=== PATIENT | male | born 1970 | race American Indian/Alaskan Native ===

== ENCOUNTER 2017-02-02 07:55 | Observation (INO) | payer OTHER ==
--- NOTE | 2017-02-02 08:40 | C.PDOC ---
History Of Present Illness 46-YEAR-OLD MALE, PRESENTS TO THE EMERGENCY DEPARTMENT WITH COMPLAINTS OF INTERMIT L FACIAL NUMB X 3 DAYS. PS ABLE TO DRINK/EAT WO DIFF. DENIES ARM/LEG WEAKNESS. COMPLIANT W BP MEDS. DENIES OTHER ASSOC SX EXAM NAD NEURO SEE NIH GAIT WNL REMAINDER NEG Time Seen by Provider: 02/02/17 08:27 Chief Complaint (Nursing): Weakness/Neurological Deficit History Per: Patient History/Exam Limitations: no limitations Past Medical History Reviewed: Historical Data, Nursing Documentation, Vital Signs Vital Signs: Last Vital Signs Temp 98.4 F 02/02/17 08:01 Pulse 79 02/02/17 10:56 Resp 16 02/02/17 10:56 BP 145/86 02/02/17 10:56 Pulse Ox 99 02/02/17 10:56 - Medical History PMH: HTN, Hypercholesterolemia Family History: States: No Known Family Hx - Social History Hx Alcohol Use: No Hx Substance Use: No - Immunization History Hx Tetanus Toxoid Vaccination: No Hx Influenza Vaccination: No Hx Pneumococcal Vaccination: No Review Of Systems Except As Marked, All Systems Reviewed And Found Negative. Constitutional: Negative for: Fever Cardiovascular: Negative for: Chest Pain Respiratory: Negative for: Shortness of Breath Gastrointestinal: Negative for: Vomiting Neurological: Positive for: Numbness. Negative for: Headache, Dizziness Physical Exam - Physical Exam Appears: Non-toxic, No Acute Distress Skin: Warm, Dry, No Rash Head: Atraumatic, Normacephalic Eye(s): bilateral: Normal Inspection Nose: Normal Oral Mucosa: Moist Lips: Normal Appearing Neck: Normal ROM Chest: Symmetrical Cardiovascular: Rhythm Regular, No Murmur Extremity: Normal ROM Neurological/Psych: Other (SEE NIH) Gait: Steady (WNL) ED Course And Treatment - Laboratory Results Result Diagrams: 02/02/17 08:59 02/02/17 08:59 ECG: Interpreted By Me, Viewed By Me ECG Rhythm: Sinus Rhythm ECG Interpretation: No Acute Changes Rate From EC O2 Sat by Pulse Oximetry: 100 Pulse Ox Interpretation: Normal - Radiology CXR: Interpreted by Me CXR Interpretation: Yes: No Acute Disease NIHSS Stroke Scale - Date/Time Evaluation Performed Date Performed: 02/02/17 Time Performed: 08:41 When Was NIHSS Performed: Baseline - How Severe is the Stroke Level of Consciousness: 0=Alert LOC to Questions: 0=Both comments correct LOC to commands: 0=Obeys both correctly Best Gaze: 0=Normal Visual: 0=No visual loss Facial: 0=Normal Motor Arm - Left: 0=No drift Motor Arm - Right: 0=No drift Motor Leg - Left: 0=No drift Motor Leg - Right: 0=No drift Limb Ataxia: 0=Absent Sensory: 1=Mild to moderate loss Best Language: 0=No aphasia Dysarthia: 0=Normal articulation Extinction & Inattention (Neglect): 0=Normal, no object Score: 1 NIHSS Stroke Scale 2 - Date/Time Evaluation Performed Date Performed: 02/02/17 Time Performed: 10:12 When Was NIHSS Performed: Re-evaluation - How Severe is the Stroke Level of Consciousness: 0=Alert LOC to Questions: 0=Both comments correct LOC to commands: 0=Obeys both correctly Best Gaze: 0=Normal Visual: 0=No visual loss Facial: 0=Normal Motor Arm - Left: 0=No drift Motor Arm - Right: 0=No drift Motor Leg - Left: 0=No drift Motor Leg - Right: 0=No drift Limb Ataxia: 0=Absent Sensory: 1=Mild to moderate loss Best Language: 0=No aphasia Dysarthia: 0=Normal articulation Extinction & Inattention (Neglect): 0=Normal, no object Score: 1 Progress - Re-Evaluation Re-evaluation Note: 02/02/17 10:12 EXAM UNCH FROM PRIOR. VSS APPEARS COMFORTABLE. 02/02/17 10:14 D/W DR GUANAKITO [facility] [employer] WILL ADMIT - Data Reviewed Data Reviewed: Lab, Diagnostic imaging, EKG, Old records rTPA Inclusion/Exclusion - Refusal of Treatment Patient Refused Treatment: No - Inclusion Criteria for Altepase Patient is 18 years or Older: Yes The Clinical Diagnosis of Ischemic Stroke That is Causing a Potentially Disabling Neurological Deficit: Yes Time of Onset is Well Established to be Less Than 270 Minute Before Treatment Would Begin: No Risk/Benefit Discussed With Patient/Family Member Present: No - Exclusion Criteria for Altepase Uncontrolled Hypertension at Time of Treatment (Systolic BP above 185 or Diastolic BP above 110 mmHg): No Active Internal Bleeding: No Known Bleeding Diathesis Including but Not Limited to: Platelets Below 100,000/ mm,PTT Above 40 sec After Heparin Use, Current Use of Oral Anitcoagulant With INR Greater Than 1.7 or PT Greater Than 15 secs: No Evidence of an Intracranial Hemorrhage: No Evidence of Major Acute Infarct With Signs Greater Than 1/3 MCA Territory: No Suspicion of Subarachnoid Hemorrhage on Pretreatment Evaluation Even if CT Head Negative For Hemorrhage: No - Warning to TPA With Conditions Following Conditions Weighed Against Anticipated Benefit: Yes Condition: Stroke Serevity Too Mild Disposition Counseled Patient/Family Regarding: Studies Performed, Diagnosis - Disposition Disposition: HOSPITALIZED Disposition Time: 10:15 Condition: STABLE - POA Present On Arrival: None - Clinical Impression Clinical Impression: Facial paresthesia, TIA (transient ischemic attack) - Scribe Statement The provider has reviewed the documentation as recorded by the Scribe (Ketan George) All medical record entries made by the Scribe were at my direction and personally dictated by me. I have reviewed the chart and agree that the record accurately reflects my personal performance of the history, physical exam, medical decision making, and the department course for this patient. I have also personally directed, reviewed, and agree with the discharge instructions and disposition. Decision To Admit - Pt Status Changed To: Hospital Disposition Of: Observation - . Bed Request Type: Telemetry Admitting Physician: Wild Joel Patient Diagnosis: Facial paresthesia, TIA (transient ischemic attack)
[2017-02-02 09:16] LABS: BASO % 0.4 % (0.0-2.0); EOS # 0.1 K/uL (0.0-0.7); EOS % 2.4 % (0.0-4.0); LYMPH # 1.7 K/uL (1.0-4.3); LYMPH % 36.2 % (20.0-40.0); MEAN CELL VOLUME 79.6 fL (80.0-94.0); MEAN CORPUSCULAR HEMOGLOBIN 25.9 pg (27.0-31.0); MEAN CORPUSCULAR HGB CONC 32.5 g/dL (33.0-37.0); MEAN PLATELET VOLUME 8.1 fL (7.2-11.7); MONO # 0.4 K/uL (0.0-0.8); NRBC % 0.1 % (0.0-2.0); RED CELL DISTRIBUTION WIDTH 15.1 % (11.5-14.5); WHITE BLOOD COUNT 4.6 K/uL (4.8-10.8)
[2017-02-02 09:22] LABS: BLOOD UREA NITROGEN 11 mg/dL (9-20); CALCIUM 8.8 mg/dl (8.6-10.4); CARBON DIOXIDE 26 mmol/L (22-30); CHLORIDE 99 mmol/L (98-107); GFR AFRICAN-AMERICAN > 60; GLUCOSE,RANDOM 95 mg/dL (75-110); POTASSIUM 3.9 mmol/L (3.6-5.2); SODIUM 133 mmol/L (132-148)
--- NOTE | 2017-02-02 10:00 | CT ---
PROCEDURE: CT HEAD WITHOUT CONTRAST. HISTORY: Left facial paresthesia COMPARISON: None available. TECHNIQUE: Axial computed tomography images were obtained through the head/brain without intravenous contrast. Radiation dose: Total exam DLP = 856.29 mGy-cm. This CT exam was performed using one or more of the following dose reduction techniques: Automated exposure control, adjustment of the mA and/or kV according to patient size, and/or use of iterative reconstruction technique. FINDINGS: HEMORRHAGE: No intracranial hemorrhage. BRAIN: Mcgill-white matter differentiation is preserved. There is no mass, mass effect or abnormal extra-axial fluid collection. VENTRICLES: The ventricles are normal in size, shape and configuration. CALVARIUM: There is no calvarial fracture or extracranial soft tissue swelling. PARANASAL SINUSES: There is mild scattered mucosal thickening in the ethmoid air cells. The remaining included paranasal sinuses are clear. MASTOID AIR CELLS: Predominantly clear. OTHER FINDINGS: None. IMPRESSION: No acute intracranial abnormality. If there is a persistent focal neurologic deficit and an ongoing clinical concern for acute infarction, an MRI of the brain without intravenous contrast would be a more sensitive modality for evaluation of hyperacute/acute ischemic infarction.
--- NOTE | 2017-02-02 12:59 | CP.PCM.CON ---
History of Present Illness - History of Present Illness History of Present Illness: consult DICTATED REC LEFT FACIAL NUMBNESS AND HEAVY - ?? RT CORTICAL DYSFUNCTION ECOTRIN/STATIN/.ARB MRI/EEG/CAROTID/ECHO. Past Patient History - Infectious Disease Hx of Infectious Diseases: None - Past Medical History & Family History Past Medical History?: Yes - Past Social History Smoking Status: Never Smoked - CARDIAC Hx Hypercholesterolemia: Yes Hx Hypertension: Yes - PSYCHIATRIC Hx Substance Use: No - SURGICAL HISTORY Hx Surgeries: Yes Other/Comment: ventral hernia repair. - ANESTHESIA Hx Anesthesia: Yes Hx Anesthesia Reactions: No Hx Malignant Hyperthermia: No Meds Allergies/Adverse Reactions: Allergies Allergy/AdvReac Type Severity Reaction Status Date / Time No Known Allergies Allergy Verified 02/02/17 08:05 - Medications Medications: Current Medications Amlodipine Besylate (Norvasc) 5 mg PO DAILY [facility] Enoxaparin Sodium (Lovenox) 40 mg SC DAILY [facility]ENG Rosuvastatin Calcium (Crestor) 10 mg PO HS [facility]ENG Results - Vital Signs Recent Vital Signs: Last Vital Signs Temp 98.6 F 02/02/17 11:59 Pulse 96 H 02/02/17 11:59 Resp 18 02/02/17 11:59 BP 134/83 02/02/17 11:59 Pulse Ox 98 02/02/17 11:59 - Labs Result Diagrams: 02/02/17 08:59 02/02/17 08:59 Labs: Laboratory Results - last 24 hr 02/02/17 02/02/17 08:59 08:59 WBC 4.6 L RBC 5.53 Hgb 14.3 Hct 44.0 MCV 79.6 L MCH 25.9 L MCHC 32.5 L RDW 15.1 H Plt Count 236 MPV 8.1 Neut % (Auto) 52.0 Lymph % (Auto) 36.2 Andrews % (Auto) 9.0 Eos % (Auto) 2.4 Baso % (Auto) 0.4 Neut # 2.4 Lymph # 1.7 Andrews # 0.4 Eos # 0.1 Baso # 0.0 Sodium 133 Potassium 3.9 Chloride 99 Carbon Dioxide 26 Anion Gap 13 BUN 11 Creatinine 1.1 Est GFR ( Amer) > 60 Est GFR (Non-Af Amer) > 60 Random Glucose 95 Calcium 8.8 Troponin I < 0.0120
[2017-02-02 13:13] VITALS: RESP 20
--- NOTE | 2017-02-02 14:09 | CON ---
NEUROLOGIC INITIAL CONSULTATION DATE OF EVALUATION: 02/02/2017 REASON FOR CONSULTATION: Left-sided facial weakness. HISTORY OF PRESENT ILLNESS: The patient came to the [facility] with a history of recurrent left facial heaviness and numbness. This has been happening at least 3 times per day. First episode, it happened while he was in a [employer] store, abrupt onset of facial heaviness on his left side, just he massaged to move his neck right and left side, with exercise, the symptoms got better. This episode happened 3 times yesterday. Again this morning at 6 o'clock, he had this episode and decided to come to the hospital for further evaluation. This episode is not associating with any facial weakness or any other weakness of his arm and legs, not affecting his speech, not affecting his visual or bulbar dysfunction. No history of recent travel. No history of trauma. No history of involuntary movements. PAST MEDICAL HISTORY: Significant for hypertension and dyslipidemia. PERSONAL HISTORY: Denies any smoking and alcohol use. REVIEW OF SYSTEMS: A 12-point system being reviewed. From neuro, no facial heaviness. MEDICATION: Norvasc. PHYSICAL EXAMINATION: VITAL SIGNS: Blood pressure 124/83, mean arterial pressure of 100, respiratory rate 16, temperature 98.6, pulse rate 100. NECK: Supple. No carotid bruits. HEART: Sounds regular. CHEST: Fair air entry. EXTREMITIES: No edema in legs. NEUROLOGIC: Mental status, he is awake, alert, and oriented to person, place, and time. Speech is clear. Naming, repetition, fluency, comprehension all within normal. Cranial nerves, visual field intact. Pupils reactive to light. Extraocular movement normal. No nystagmus. No facial sensory deficit. Mild left facial flattening of the nasolabial fold. Hearing is normal. Tongue is midline. Good gag. Motor examination on outstretched hand with eyes closed, no drift noted. Power is symmetric on either side. Deep tendon reflexes, biceps, brachialis, triceps are 1+. Plantar upgoing on his left side. Sensory, no cortical sensory loss. Coordination, mfzqvc-[id number] test is intact. Gait is normal. WORKUP: CT of the head reviewed by me, no acute stroke process. EKG normal sinus rhythm. WBC 4.6, hemoglobin 14.3, hematocrit 44, platelet 236, sodium 133, potassium 3.9, chloride 99, bicarbonate 26, BUN 11, creatinine 1.1, GFR more than 60, troponin 0.012. CONCLUSION: Mr. Bridger Stubbs has been presenting with mild left hemiparesis manifesting with dysfunction of the right subcortical region manifesting with flattening of the left nasolabial fold and Babinski sign. Considering his overweight, hypertension and poorly controlled cholesterol could be the cause for his problem; however, other possible causes including tumor and space-occupying lesion should be ruled out. RECOMMENDATIONS: 1. MRI of the brain to rule out structural cause for this problem. 2. A carotid Doppler to rule out stenosis. 3. Echocardiogram to rule out any cardioembolic phenomenon. 4. EEG to rule out any paroxysmal activities. 5. The patient should be on aspirin, statin, and angiotensin receptor blockers. 6. The patient should control the blood pressure to keep the mean arterial pressure around 90 to 100. 7. If the patient is stable for the next 24-hour period, following this workup, the patient can be discharged and should have a followup visit as an outpatient. James Zurita MD
[2017-02-02 14:52] LABS: FREE T4 1.12 ng/dL (0.78-2.19)
[2017-02-02 15:43] LABS: FOLATE 12.3 ng/mL
[2017-02-02 15:52] LABS: THYROID STIMULATING HORMONE 1.06 mIU/L (0.46-4.68)
[2017-02-02 16:25] LABS: HOMOCYSTEINE 14.2 umol/L (6.6-14.8)
--- NOTE | 2017-02-03 00:03 | CP.PCM.HP ---
History of Present Illness - History of Present Illness History of Present Illness: 46 y/o bm with htn, and he claims to be compliant, with 2 days of l sided facila numbness and weakness, with no symptoms in arms and leg, no chest pain, no sob Present on Admission - Present on Admission Any Indicators Present on Admission: No History of DVT/PE: No History of Uncontrolled Diabetes: No Urinary Catheter: No Decubitus Ulcer Present: No Review of Systems - Constitutional Constitutional: Snoring - Cardiovascular Cardiovascular: Rapid Heart Rate - Respiratory Respiratory: Cough - Musculoskeletal Musculoskeletal: absent: Abnormal Gait, Arthralgias, Atrophy, Back Pain - Integumentary Integumentary: absent: Alopecia, Bleeding Lesions, New Lesions - Neurological Neurological: Tingling. absent: Headaches, Lack of Coordination - Endocrine Endocrine: Fatigue Past Patient History - Infectious Disease Hx of Infectious Diseases: None - Past Medical History & Family History Past Medical History?: Yes - Past Social History Smoking Status: Never Smoked - CARDIAC Hx Hypercholesterolemia: Yes Hx Hypertension: Yes - MUSCULOSKELETAL/RHEUMATOLOGICAL Hx Falls: No - PSYCHIATRIC Hx Substance Use: No - SURGICAL HISTORY Hx Surgeries: Yes Other/Comment: ventral hernia repair. - ANESTHESIA Hx Anesthesia: Yes Hx Anesthesia Reactions: No Hx Malignant Hyperthermia: No Meds Allergies/Adverse Reactions: Allergies Allergy/AdvReac Type Severity Reaction Status Date / Time No Known Allergies Allergy Verified 02/02/17 08:05 Physical Exam - Constitutional Appears: Non-toxic, No Acute Distress - Head Exam Head Exam: ATRAUMATIC, NORMAL INSPECTION, NORMOCEPHALIC - Eye Exam Eye Exam: EOMI, Normal appearance, PERRL Pupil Exam: NORMAL ACCOMODATION - ENT Exam ENT Exam: Mucous Membranes Moist, Normal Exam, Normal Oropharynx - Neck Exam Neck exam: Positive for: Normal Inspection - Respiratory Exam Respiratory Exam: Clear to Auscultation Bilateral, NORMAL BREATHING PATTERN - Cardiovascular Exam Cardiovascular Exam: REGULAR RHYTHM, +S1, +S2 - GI/Abdominal Exam GI & Abdominal Exam: Normal Bowel Sounds - Rectal Exam Rectal Exam: NORMAL INSPECTION - Exam Exam: NORMAL INSPECTION - Extremities Exam Extremities exam: Positive for: normal inspection - Back Exam Back exam: NORMAL INSPECTION - Neurological Exam Neurological exam: Alert, CN II-XII Intact, Normal Gait, Oriented x3, Reflexes Normal - Skin Skin Exam: Dry, Intact Results - Vital Signs Recent Vital Signs: Last Vital Signs Temp 98.3 F 02/02/17 15:16 Pulse 81 02/02/17 15:56 Resp 20 02/02/17 15:16 BP 131/86 02/02/17 15:16 Pulse Ox 97 02/02/17 15:16 - Labs Result Diagrams: 02/02/17 08:59 02/02/17 08:59 Labs: Laboratory Results - last 24 hr 02/02/17 02/02/17 02/02/17 08:59 08:59 14:02 WBC 4.6 L RBC 5.53 Hgb 14.3 Hct 44.0 MCV 79.6 L MCH 25.9 L MCHC 32.5 L RDW 15.1 H Plt Count 236 MPV 8.1 Neut % (Auto) 52.0 Lymph % (Auto) 36.2 Hodgeman % (Auto) 9.0 Eos % (Auto) 2.4 Baso % (Auto) 0.4 Neut # 2.4 Lymph # 1.7 Hodgeman # 0.4 Eos # 0.1 Baso # 0.0 ESR 10 Sodium 133 Potassium 3.9 Chloride 99 Carbon Dioxide 26 Anion Gap 13 BUN 11 Creatinine 1.1 Est GFR ( Amer) > 60 Est GFR (Non-Af Amer) > 60 Random Glucose 95 Hemoglobin A1c Calcium 8.8 Troponin I < 0.0120 C-React Prot High Sens Triglycerides Cholesterol LDL Cholesterol Direct HDL Cholesterol Vitamin B12 Folate Homocysteine Free T4 TSH 3rd Generation Prolactin RPR 02/02/17 02/02/17 02/02/17 14:02 14:02 14:02 WBC RBC Hgb Hct MCV MCH MCHC RDW Plt Count MPV Neut % (Auto) Lymph % (Auto) Hodgeman % (Auto) Eos % (Auto) Baso % (Auto) Neut # Lymph # Hodgeman # Eos # Baso # ESR Sodium Potassium Chloride Carbon Dioxide Anion Gap BUN Creatinine Est GFR ( Amer) Est GFR (Non-Af Amer) Random Glucose Hemoglobin A1c Calcium Troponin I C-React Prot High Sens 0.43 L Triglycerides 123 Cholesterol 256 H LDL Cholesterol Direct 176 H HDL Cholesterol 43 Vitamin B12 267 Folate 12.3 Homocysteine 14.2 Free T4 1.12 TSH 3rd Generation 1.06 Prolactin 11.2 RPR Nonreactive 02/02/17 14:30 WBC RBC Hgb Hct MCV MCH MCHC RDW Plt Count MPV Neut % (Auto) Lymph % (Auto) Hodgeman % (Auto) Eos % (Auto) Baso % (Auto) Neut # Lymph # Hodgeman # Eos # Baso # ESR Sodium Potassium Chloride Carbon Dioxide Anion Gap BUN Creatinine Est GFR ( Amer) Est GFR (Non-Af Amer) Random Glucose Hemoglobin A1c 5.7 Calcium Troponin I C-React Prot High Sens Triglycerides Cholesterol LDL Cholesterol Direct HDL Cholesterol Vitamin B12 Folate Homocysteine Free T4 TSH 3rd Generation Prolactin RPR Assessment & Plan (1) Hypertension Status: Chronic Priority: High (2) Facial paresthesia Status: Acute Priority: High
[2017-02-03 02:12] VITALS: O2SAT 100
[2017-02-03 08:34] VITALS: BP 130/85; PULSE 86; TEMP 98.2
--- NOTE | 2017-02-03 09:39 | PN ---
DATE: 02/03/2017 TIME OF EVALUATION: 07:15 a.m. NEUROLOGICAL PROBLEM: Possible right cortical dysfunction manifesting with left facial numbness. PHYSICAL EXAMINATION: NEUROLOGIC: Mild asymmetry of the face again noted. Reflexes are intact. Plantars are downgoing. ASSESSMENT AND PLAN: The patient is scheduled to have MRI of the brain, EEG and further workup for the stroke. The patient can continue antiplatelets as recommended with Crestor and angiotension receptor blockers. If MRI is negative, the patient can be discharged and should have followup visit as outpatient. In the meantime, let him continue the recommendation. James Zurita MD
[2017-02-03] MEDS ORDERED: Enoxaparin 40 mg Syringe SC SCH (10:00)
--- NOTE | 2017-02-03 11:17 | VASCLAB ---
PROCEDURE: HISTORY: assess stenosis COMPARISON: None available. TECHNIQUE: Grayscale and duplex Doppler evaluation of the cervical carotid and vertebral arteries were performed. The common carotid, carotid bifurcations and cervical Internal Carotid Artery (ICA) and proximal External Carotid Artery (ECA) were evaluated. The vertebral arteries were evaluated for gross patency and flow direction. Report prepared by JUANA Milner FINDINGS: RIGHT CAROTID ARTERIES: 1. Common Carotid Artery: No significant focal plaque formation of the right common carotid artery. Maximum Peak Systolic velocity: 108 cm/sec: End-diastolic velocity 19 cm/sec. 2. Carotid Bifurcation: No significant focal plaque formation. Maximum Peak Systolic velocity: 63 cm/sec: End-diastolic velocity 14 cm/sec. 3. Internal Carotid Artery: No significant plaque formation Plaque description: 3.1. Proximal Segment: Peak systolic velocity 46 cm/sec: End-diastolic velocity 19 cm/sec - % stenosis 0-15% 3.2. Middle Segment: Peak systolic velocity 50 cm/sec: End-diastolic velocity 19 cm/sec - % stenosis 0-15% 3.3. Distal Segment: Peak systolic velocity 65 cm/sec: End-diastolic velocity 22 cm/sec - % stenosis 0-15% 4. External Carotid Artery: No significant focal plaque formation. Peak systolic velocity 56 cm/sec 5. ICA/CCA Ratio: 0.6 LEFT CAROTID ARTERIES: 1. Common Carotid Artery: No significant focal plaque formation of the left common carotid artery. Maximum Peak Systolic velocity: 92 cm/sec: End-diastolic velocity 19 cm/sec. 2. Carotid Bifurcation: No significant focal plaque formation. Maximum Peak Systolic velocity: 76 cm/sec: End-diastolic velocity 14 cm/sec. 3. Internal Carotid Artery: No significant plaque formation Plaque description: 3.1. Proximal Segment: Peak systolic velocity 39 cm/sec: End-diastolic velocity 13 cm/sec - % stenosis 0-15% 3.2. Middle Segment: Peak systolic velocity 84 cm/sec: End-diastolic velocity 30 cm/sec - % stenosis 0-15% 3.3. Distal Segment: Peak systolic velocity 57 cm/sec: End-diastolic velocity 17 cm/sec - % stenosis 0-15% 4. External Carotid Artery: No significant focal plaque formation. Peak systolic velocity 79 cm/sec 5. ICA/CCA Ratio: 0.9 VERTEBRAL ARTERIES: 1. Right Vertebral Artery: The right vertebral artery flow direction is antegrade. 2. Left Vertebral Artery: The left vertebral artery flow direction is antegrade. OTHER FINDINGS: 1. Right Brachial Blood pressure: 160 mmHg. 2. Left Brachial Blood pressure: 140 mmHg. IMPRESSION: RIGHT: Duplex scan does not suggest hemodynamically significant stenosis of the right extracranial carotid arteries. LEFT: Duplex scan does not suggest hemodynamically significant stenosis of the left extracranial carotid arteries.
--- NOTE | 2017-02-03 13:05 | MRI ---
PROCEDURE: MRI BRAIN WITHOUT CONTRAST HISTORY: RIGH SUB CORTICAL STROKE COMPARISON: Head CT 02/02/2017. TECHNIQUE: Multiplanar, multisequence MR images of the brain were obtained without intravenous contrast enhancement. FINDINGS: HEMORRHAGE: None DWI: No evidence of an acute or early subacute infarction. BRAIN PARENCHYMA: There are 2 tiny foci identified in the bilateral parietal deep white matter diminished in signal on FLAIR imaging and increased signal on T2 weighted imaging. There diminished in signal on T1 and likely reflect either dilated perivascular spaces for potential chronic lacunes the remaining white matter is within normal limits throughout, including the corpus callosum. Follow-up contrast MRI is advised for additional characterization, nevertheless. Corticomedullary differentiation is normal throughout the brain and there is no mass-effect. Sulci and cisterns appear normal throughout. No escobedo matter signal abnormality is identified and there is no parenchymal edema appreciated throughout. VENTRICLES: Unremarkable. No hydrocephalus. CRANIUM: Unremarkable. ORBITS: Grossly unremarkable. PARANASAL SINUSES/MASTOIDS: Clear VASCULAR SYSTEM: Skull base flow voids intact. OTHER FINDINGS: A 0.7 cm lesion, bright on all sequences, is seen in the midline posterior nasopharyngeal soft tissues appearing well-circumscribed and representing a Tornwaldt cyst. IMPRESSION: 1. Sub cm T2 hyperintensity, FLAIR and T1 hypointensity is appreciated with one each at the right and left parietal lobes deep white matter potentially representing dilated perivascular spaces. The appearance is nonspecific and other etiologies are possible with remaining white matter normal in appearance throughout include, including the corpus callosum. Follow-up MRI with contrast is advised given lack of prior MRI for correlation. 2. Incidental Tornwaldt cyst posterior nasopharynx.
--- NOTE | 2017-02-03 15:26 | CP.PCM.PN ---
Subjective - Date & Time of Evaluation Date of Evaluation: 02/03/17 Time of Evaluation: 15:26 - Subjective Subjective: PT CLEARED FOR D/C HOME TODAY PER DR. JUDD AND DR. CALABRESE. ECHO DONE BUT RESULT IS PENDING. OK TO D/C PT WITH ECHO RESULTS PENDING PER DR. CALABRESE. RX FOR STATIN, ARB, AND ASA SENT TO PT'S PHARMACY. I HAD LENGTHY DISCUSSION WITH THE PT ABOUT NEW RX, D/C INFORMATION, AND FOLLOW UP. HE WILL F/U WITH BOTH DR. JUDD AND DR. CALABRESE. I ALSO PROVIDED HIM WITH ENT INFORMATION SO THAT HE CAN BE FURTHER EVALUATED FOR CYST NOTED TO NASOPHARYNX ON CT. NO FURTHER ORDERS. Objective - Vital Signs/Intake and Output Vital Signs (last 24 hours): Temp Pulse Resp BP Pulse Ox 98.2 F 86 20 130/85 100 02/03/17 07:45 02/03/17 07:45 02/03/17 07:45 02/03/17 07:45 02/03/17 07:45 Intake and Output: 02/03/17 02/03/17 06:59 18:59 Intake Total 0 Balance 0 - Medications Medications: Current Medications Amlodipine Besylate (Norvasc) 5 mg PO DAILY [facility] Last Admin: 02/03/17 10:43 Dose: 5 mg Aspirin (Ecotrin) 81 mg PO DAILY [facility] Last Admin: 02/03/17 10:43 Dose: 81 mg Enoxaparin Sodium (Lovenox) 40 mg SC DAILY [facility]ENG Last Admin: 02/03/17 10:43 Dose: 40 mg Lorazepam (Ativan) 1 mg IVP ONCE PRN PRN Reason: Sedation Last Admin: 02/03/17 10:39 Dose: 1 mg Losartan Potassium (Cozaar) 25 mg PO DAILY [facility] Last Admin: 02/03/17 10:43 Dose: 25 mg Rosuvastatin Calcium (Crestor) 5 mg PO HS [facility] Last Admin: 02/02/17 21:18 Dose: 5 mg - Labs Labs: 02/02/17 08:59 02/02/17 08:59
--- NOTE | 2017-02-03 22:58 | CP.PCM.DIS ---
Provider - Provider Date of Admission: 02/02/17 10:15 Attending physician: Wild Joel MD Time Spent in preparation of Discharge (in minutes): 56 Diagnosis - Discharge Diagnosis (1) Hypertension Status: Chronic Priority: High (2) Facial paresthesia Status: Acute Priority: High Hospital Course - Lab Results Lab Results: Most Recent Lab Values WBC 4.6 K/uL (4.8-10.8) L 02/02/17 08:59 RBC 5.53 Mil/uL (4.40-5.90) 02/02/17 08:59 Hgb 14.3 g/dL (12.0-18.0) 02/02/17 08:59 Hct 44.0 % (35.0-51.0) 02/02/17 08:59 MCV 79.6 fL (80.0-94.0) L 02/02/17 08:59 MCH 25.9 pg (27.0-31.0) L 02/02/17 08:59 MCHC 32.5 g/dL (33.0-37.0) L 02/02/17 08:59 RDW 15.1 % (11.5-14.5) H 02/02/17 08:59 Plt Count 236 K/uL (130-400) 02/02/17 08:59 MPV 8.1 fL (7.2-11.7) 02/02/17 08:59 Neut % (Auto) 52.0 % (50.0-75.0) 02/02/17 08:59 Lymph % (Auto) 36.2 % (20.0-40.0) 02/02/17 08:59 Brown % (Auto) 9.0 % (0.0-10.0) 02/02/17 08:59 Eos % (Auto) 2.4 % (0.0-4.0) 02/02/17 08:59 Baso % (Auto) 0.4 % (0.0-2.0) 02/02/17 08:59 Neut # 2.4 K/uL (1.8-7.0) 02/02/17 08:59 Lymph # 1.7 K/uL (1.0-4.3) 02/02/17 08:59 Brown # 0.4 K/uL (0.0-0.8) 02/02/17 08:59 Eos # 0.1 K/uL (0.0-0.7) 02/02/17 08:59 Baso # 0.0 K/uL (0.0-0.2) 02/02/17 08:59 ESR 10 mm/hr (0-15) 02/02/17 14:02 Sodium 133 mmol/L (132-148) 02/02/17 08:59 Potassium 3.9 mmol/L (3.6-5.2) 02/02/17 08:59 Chloride 99 mmol/L (98-107) 02/02/17 08:59 Carbon Dioxide 26 mmol/L (22-30) 02/02/17 08:59 Anion Gap 13 (10-20) 02/02/17 08:59 BUN 11 mg/dL (9-20) 02/02/17 08:59 Creatinine 1.1 mg/dL (0.8-1.5) 02/02/17 08:59 Est GFR ( Amer) > 60 02/02/17 08:59 Est GFR (Non-Af Amer) > 60 02/02/17 08:59 Random Glucose 95 mg/dL (75-110) 02/02/17 08:59 Hemoglobin A1c 5.7 % (4.2-6.5) 02/02/17 14:30 Calcium 8.8 mg/dl (8.6-10.4) 02/02/17 08:59 Troponin I < 0.0120 ng/mL (0.00-0.120) 02/02/17 08:59 C-React Prot High Sens 0.43 mg/L (1.00-3.00) L 02/02/17 14:02 Triglycerides 123 mg/dL (0-149) 02/02/17 14:02 Cholesterol 256 mg/dL (0-199) H 02/02/17 14:02 LDL Cholesterol Direct 176 mg/dL (0-129) H 02/02/17 14:02 HDL Cholesterol 43 mg/dL (30-70) 02/02/17 14:02 Vitamin B12 267 pg/mL (239-931) 02/02/17 14:02 Folate 12.3 ng/mL 02/02/17 14:02 Homocysteine 14.2 umol/L (6.6-14.8) 02/02/17 14:02 Free T4 1.12 ng/dL (0.78-2.19) 02/02/17 14:02 TSH 3rd Generation 1.06 mIU/L (0.46-4.68) 02/02/17 14:02 Prolactin 11.2 ng/mL (3.7-17.9) 02/02/17 14:02 RPR Nonreactive (NONREACTIVE) 02/02/17 14:02 - Hospital Course Hospital Course: Pt was discharged today, seen by neurology and cleared was admitted for numbness of left side of face with unknwon etiology Discharge Exam - Head Exam Head Exam: ATRAUMATIC, NORMAL INSPECTION, NORMOCEPHALIC - Eye Exam Eye Exam: EOMI, Normal appearance, PERRL Pupil Exam: NORMAL ACCOMODATION, PERRL - ENT Exam ENT Exam: Mucous Membranes Moist - Respiratory Exam Respiratory Exam: Clear to PA & Lateral, NORMAL BREATHING PATTERN - Cardiovascular Exam Cardiovascular Exam: REGULAR RHYTHM, +S1, +S2 - GI/Abdominal Exam GI & Abdominal Exam: Normal Bowel Sounds - Neurological Exam Neurological exam: Alert, CN II-XII Intact, Normal Gait, Oriented x3, Reflexes Normal - Psychiatric Exam Psychiatric exam: Normal Affect, Normal Mood Discharge Plan - Discharge Medications Prescriptions: Losartan [Cozaar] 25 mg PO DAILY #30 tab Rosuvastatin Calcium [Crestor] 5 mg PO HS #30 tab Aspirin [Ecotrin] 81 mg PO DAILY #30 tabec - Follow Up Plan Condition: STABLE Disposition: HOME/ ROUTINE Instructions: Aspirin (By mouth), Losartan (By mouth), Rosuvastatin (By mouth) , Transient Ischemic Attack (DC), Heart Healthy Diet (DC) Additional Instructions: FOLLOW UP WITH DR. JOEL IN THE OFFICE WITHIN 5-7 DAYS---CALL FOR APPT TIME. FOLLOW UP WITH DR. JUDD (NEUROLOGY) IN THE OFFICE WITHIN 7-10 DAYS---CALL FOR APPT TIME. CONTINUE ALL MEDICATIONS EXACTLY PRESCRIBED. FOR FURTHER CONCERNS OR QUESTIONS ,CONTACT DR. JOEL OR DR. JUDD. Referrals: Mir Linares MD [Staff Provider] - James Judd MD [Staff Provider] - Wild Joel MD [Staff Provider] -
--- NOTE | 2017-02-04 21:43 | CARD ---
APPROVED REPORT EKG Measurement Heart [id number] [place] 130P-5 [id number] <Conclusion> Normal sinus rhythm Nonspecific T wave abnormality Abnormal ECG
--- NOTE | 2017-02-04 22:33 | CARD ---
APPROVED REPORT EXAM: Two-dimensional and M-mode echocardiogram with Doppler and color Doppler. Other Information Quality : GoodRhythm : INDICATION CVA/TIA RISK FACTORS Hypertension M-Mode DIMENSIONS RVDd1.48 (2.1-3.2cm)Left Atrium (MM)3.84 (2.5-4.0cm) IVSd0.92 (0.7-1.1cm)Aortic Root3.21 (2.2-3.7cm) LVDd6.12 (4.0-5.6cm)Aortic Cusp Exc.2.10 (1.5-2.0cm) PWd0.96 (0.7-1.1cm)FS (%) 34 % LVDs4.06 (2.0-3.8cm)LVEF (%)62 (>50%) Aortic Valve AoV Peak Mbjmlzli158.9cm/Se Peak GR.7mmHg Mitral Valve MV E Cwozqqsd91.8cm/sMV A Ezctdxyv315.9cm/sE/A ratio0.7 TDI E/Lateral E'0.0E/Medial E'0.0 Tricuspid Valve TR Peak Jlciabbu584hw/sTR Peak Gr.17voEfDHUS73apSv <Conclusion> Suboptimal study Left ventricle: thickness: normal; size: normal; overall ejection fraction: 55%: diastolic filling pressures: elevated Mitral valve: annulus: normal: leaflets: normal: excursion: normal; no significant trans-mitral gradient:mild incompetence: left atrium: normal Aortic valve: leaflets: normal: excursion: normal; no significant trans-aortic gradient: No significant incompetence: aortic root: normal Right sided Structures: Pulmonary valve: normal; no significant incompetence; Tricuspid valve: normal;no significant incompetence: Intra-cardiac hemodynamics: pulmonary systolic pressures: normal; central venous pressures: normal No pericardial effusion
== END 2017-02-03 16:10 | disposition home or self-care (01) ==
LOC: C.ER 07:55 → C.9E 10:15 → C.6T 11:12
PROVIDERS: ADMIT Specialist; ATTEND Internal Medicine
DX: I10 Essential (primary) hypertension (principal); E78.5 Hyperlipidemia, unspecified; E66.3 Overweight; R20.2 Paresthesia of skin
CPT/HCPCS: 70450; 70551; 71020; 80048; 80061; 82607; 82746; 83036; 83090; 84146; 84439; 84443; 84484; 85025; 85651; 86140; 86592; 93306; 93880; 95812; 97116; 97161; 97165; 97530; 99285; G0378; G8978; G8979; G8980; G8987; G8988; G8989; J1650; J2060

== ENCOUNTER 2018-07-01 23:42 | Inpatient (IN) | payer OTHER ==
[2018-07-01] MEDS ORDERED: Sodium Chloride 0.9% 1,000 ML IV ONE (23:57)
--- NOTE | 2018-07-02 00:02 | C.PDOC ---
History Of Present Illness 48 year old male presents to the ED c/o abdominal pain for the past week. Patient also reports having constipation, subjective fever at home he has been treating with Tylenol. Patient denies other medical complaints. Time Seen by Provider: 07/01/18 23:48 Chief Complaint (Nursing): Abdominal Pain History Per: Patient History/Exam Limitations: no limitations Onset/Duration Of Symptoms: Days Current Symptoms Are (Timing): Still Present Location Of Pain/Discomfort: Diffuse Quality Of Discomfort: "Pain" Associated Symptoms: Fever, Constipation. denies: Nausea, Vomiting, Diarrhea Recent travel outside of the [place]: No Additional History Per: Patient Past Medical History Reviewed: Historical Data, Nursing Documentation, Vital Signs Vital Signs: Last Vital Signs Temp 100.1 F H 07/01/18 23:51 Pulse 104 H 07/01/18 23:51 Resp 20 07/01/18 23:51 BP 142/85 07/01/18 23:51 Pulse Ox 97 07/01/18 23:51 Primary Care Provider: Wild Joel - Medical History PMH: HTN, Hypercholesterolemia Surgical History: No Surg Hx Family History: States: Unknown Family Hx - Social History Hx Alcohol Use: No Hx Substance Use: No - Immunization History Hx Tetanus Toxoid Vaccination: No Hx Influenza Vaccination: No Hx Pneumococcal Vaccination: No Review Of Systems Constitutional: Positive for: Fever. Negative for: Chills Cardiovascular: Negative for: Chest Pain Respiratory: Negative for: Shortness of Breath Gastrointestinal: Positive for: Abdominal Pain. Negative for: Nausea, Vomiting Genitourinary: Negative for: Dysuria Musculoskeletal: Negative for: Back Pain Skin: Negative for: Rash Neurological: Negative for: Weakness, Numbness Physical Exam - Physical Exam Appears: Non-toxic, No Acute Distress Skin: Normal Color, Warm, Dry Head: Atraumatic, Normacephalic Eye(s): bilateral: Normal Inspection Neck: Normal ROM, Supple Chest: Symmetrical Cardiovascular: Rhythm Regular Respiratory: Normal Breath Sounds, No Rales, No Rhonchi, No Wheezing Gastrointestinal/Abdominal: Soft, Tenderness (non focal mostly lower abdomen), Distention (moderate), No Guarding, No Rebound Back: No CVA Tenderness Extremity: Normal ROM, No Tenderness, No Swelling Neurological/Psych: Oriented x3, Normal Speech, Normal Cognition Gait: Steady ED Course And Treatment - Laboratory Results Result Diagrams: 07/02/18 00:35 05/24/19 00:35 O2 Sat by Pulse Oximetry: 97 (ON RA) Pulse Ox Interpretation: Normal - CT Scan/US CT abd/pelvis Other Rad Studies (CT/US): Read By Radiologist, Radiology Report Reviewed CT/US Interpretation: CT SCAN OF THE ABDOMEN AND PELVIS WITHOUT ORAL OR IV CONTRAST. CLINICAL INDICATION: Abdominal distention. TECHNIQUE: Axial and reformatted sagittal and coronal images of the abdomen pelvis obtained without IV contrast administration. COMPARISON: None. FINDINGS: Colonic diver ticulosis. Perforated acute sigmoid diverticulitis. Surrounding minimal pockets of free perisigmoid gas. Perisigmoid free fluid. No other foci of pneumoperitoneum are noted. No loculated drainable abscess formation. The visualized lung bases are unremarkable. Normal unenhanced liver. Normal gallbladder and extrahepatic biliary system. Normal unenhanced spleen. Normal pancreas. . Normal bilateral adrenal glands. Normal size of the right kidney. There is no right renal mass. There are no right renal calculi. There is no right hydronephrosis. Normal visualized right ureter. Normal size of the left kidney. There is no left renal mass. There are no left renal calculi. There i s no left hydronephrosis. Normal visualized left ureter. Normal visualized stomach. Normal small intestine. The appendix is visualized and appears normal. Normal abdominal aorta. Normal inferior vena cava. Normal retroperitoneum. . Normal urinary bladder. There is no pelvic mass lesion or lymphadenopathy. . Normal abdominal wall. Normal osseous structures. IMPRESSION: Colonic diverticulosis. Perforated acute sigmoid diverticulitis. Surrounding minimal pockets of free perisigmoid gas. Surgical consultation is recommended. Perisigmoid free fluid. No other foci of pneumoperitoneum are noted. No loculated drainable abscess formation. . Electronically signed on July 02, 2018 3:48:48 AM EDT by: Xena White M.D., Certified by ABR, MSK, Neuroradiology Medical Decision Making Medical Decision Making: ro obstuction colitis uti Plan: * Labs * IV fluids * Tylenol 975 mg PO * UA lab sneg. ct shows microperf, divertiultis, no gross free air. abd sfot mild voluntary gaurding, no reboound. see in ner by surgery accepted dr joel. r equests dr adkins consult. Disposition - Disposition Disposition: HOSPITALIZED Disposition Time: 04:55 Condition: GOOD - Clinical Impression Clinical Impression: Perforated diverticulum, Diverticulitis - Scribe Statement The provider has reviewed the documentation as recorded by the Scribe Jarrod Sprague All medical record entries made by the Scribe were at my direction and personally dictated by me. I have reviewed the chart and agree that the record accurately reflects my personal performance of the history, physical exam, medical decision making, and the department course for this patient. I have also personally directed, reviewed, and agree with the discharge instructions and disposition. Decision To Admit - Pt Status Changed To: Hospital Disposition Of: Inpatient - Admit Certification Admit to Inpatient:: After my assessment, the patient will require hospitalization for at least two midnights. This is because of the severity of symptoms shown, intensity of services needed, and/or the medical risk in this patient being treated as an outpatient. - InPatient: Physician Admission Certification:: needs surgery eval and iv anbitiocsi - . Bed Request Type: Regular Admitting Physician: Wild Joel Patient Diagnosis: Perforated diverticulum, Diverticulitis
[2018-07-02 00:42] LABS: BASO % 0.4 % (0.0-2.0); EOS % 0.4 % (0.0-4.0); HEMOGLOBIN 11.9 g/dL (12.0-18.0); LYMPH # 1.4 K/uL (1.0-4.3); LYMPH % 16.7 % (20.0-40.0); MEAN CELL VOLUME 77.9 fL (80.0-94.0); MEAN CORPUSCULAR HEMOGLOBIN 25.4 pg (27.0-31.0); MEAN CORPUSCULAR HGB CONC 32.6 g/dL (33.0-37.0); MEAN PLATELET VOLUME 7.7 fL (7.2-11.7); MONO # 0.8 K/uL (0.0-0.8); MONO % 8.9 % (0.0-10.0); NEUT # 6.3 K/uL (1.8-7.0); NEUT % 73.6 % (50.0-75.0); NRBC % 0.1 % (0.0-2.0); RBC 4.69 Mil/uL (4.40-5.90); RED CELL DISTRIBUTION WIDTH 14.9 % (11.5-14.5); WHITE BLOOD COUNT 8.6 K/uL (4.8-10.8)
[2018-07-02 00:46] LABS: SQUAMOUS EPITHIAL < 1 /hpf (0-5); URINE BILIRUBIN NEGATIVE (NEGATIVE); URINE BLOOD NEGATIVE (NEGATIVE); URINE CLARITY Clear (Clear); URINE COLOR Yellow (YELLOW); URINE GLUCOSE (UA) NORMAL (Normal); URINE LEUKOCYTE ESTERASE NEG Leu/uL (Negative); URINE PROTEIN 1+ mg/dL (NEGATIVE); URINE UROBILINOGEN NORMAL mg/dL (0.2-1.0)
[2018-07-02 00:52] LABS: INR 1.4; PARTIAL THROMBOPLASTIN TIME 34.5 SECONDS (21-34); PROTHROMBIN TIME 14.8 SECONDS (9.7-12.2)
[2018-07-02 00:54] LABS: BLOOD UREA NITROGEN 15 mg/dL (9-20); CALCIUM 9.1 mg/dl (8.6-10.4); GFR NON-AFRICAN AMERICAN 59; LIPASE 58 U/L (23-300)
[2018-07-02 01:03] LABS: ALBUMIN 3.9 g/dL (3.5-5.0); ALT/SGPT 29 U/L (21-72); AST/SGOT 47 U/L (17-59)
[2018-07-02] MEDS ORDERED: Iodixanol 320 MG/ML 100 ML BOTTLE IV ONE (02:32)
[2018-07-02] MEDS ORDERED: Piperacillin/Tazobact 3.375 gm 100 ML IVPB STA (03:50)
[2018-07-02] MEDS ORDERED: HYDROmorphone 0.5 mg/0.5 ml ISec IVP PRN (04:24)
[2018-07-02] MEDS ORDERED: Piperacillin/Tazobact 3.375 gm 100 ML IVPB ONE (04:26)
--- NOTE | 2018-07-02 04:29 | CP.PCM.CON ---
History of Present Illness - History of Present Illness History of Present Illness: General surgery consult note for Dr. Aleksander Barrett, PGY-2 Pt seen/examined at bedside 48M w/PMH sig for HTN, HLD consulted for LLQ abdominal pain x 1 week. Pain is moderate- severe, radiates to back, constant, sharp. Alleviated by Tylenol, no aggravating factors identified. 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 Denies chills, diarrhea, dysuria, hematuria, CP, SOB, sore throat, cough, [place], other complaints. Denies ever having a colonoscopy. In ED, afebrile, no leukocytosis. CT A/P with findings of Colonic diverticulosis. Perforated acute sigmoid diverticulitis. Surrounding minimal pockets of free perisigmoid gas. Surgical consultation is recommended. Per isigmoid free fluid. No other foci of pneumoperitoneum are noted. No loculated drainable abscess formation. PMH: HTN, HLD PSH: umbilical hernia repair All: NKDA SH: Denies ETOH, tobacco or illicit drug use FH: Non contributory PMD: Dr. Joel Review of Systems - Review of Systems All systems: reviewed and no additional remarkable complaints except - Constitutional Constitutional: Fever. absent: Chills, Headache - EENT Nose/Mouth/Throat: absent: Sore Throat - Cardiovascular Cardiovascular: absent: Chest Pain - Respiratory Respiratory: absent: Cough - Gastrointestinal Gastrointestinal: Abdominal Pain, Constipation. absent: Diarrhea, Hematemesis, Hematochezia, Loose Stools, Melena, Nausea, Vomiting - Genitourinary Genitourinary: absent: Dysuria, Hematuria - Musculoskeletal Musculoskeletal: Back Pain - Integumentary Integumentary: absent: Rash - Neurological Neurological: Weakness - Psychiatric Psychiatric: Change in Appetite Past Patient History - Infectious Disease Hx of Infectious Diseases: None - Past Medical History & Family History Past Medical History?: Yes - Past Social History Smoking Status: Never Smoked - CARDIAC Hx Hypercholesterolemia: Yes Hx Hypertension: Yes - MUSCULOSKELETAL/RHEUMATOLOGICAL Hx Falls: No - PSYCHIATRIC Hx Substance Use: No - SURGICAL HISTORY Hx Surgeries: Yes Other/Comment: ventral hernia repair. - ANESTHESIA Hx Anesthesia: Yes Hx Anesthesia Reactions: No Hx Malignant Hyperthermia: No Meds Allergies/Adverse Reactions: Allergies Allergy/AdvReac Type Severity Reaction Status Date / Time No Known Allergies Allergy Verified 07/01/18 23:55 - Medications Medications: Current Medications Hydromorphone HCl (Dilaudid) 0.5 mg IVP Q3H PRN PRN Reason: Pain, severe (8-10) Lactated Ringer's (Lactated Ringer's) 1,000 mls @ 150 mls/hr IV .Q6H40M MENG Piperacillin Sod/Tazobactam Sod (Zosyn 3.375 Gm Iv Premix) 3.375 gm in 50 mls @ 100 mls/hr IVPB Q6H MENG; Protocol Ketorolac Tromethamine (Toradol) 30 mg IVP Q6H PRN PRN Reason: Pain, moderate (4-7) Ondansetron HCl (Zofran Inj) 4 mg IVP Q4H PRN PRN Reason: Nausea/Vomiting Physical Exam - Constitutional Appears: Non-toxic, No Acute Distress - Head Exam Head Exam: ATRAUMATIC, NORMAL INSPECTION, NORMOCEPHALIC - Eye Exam Eye Exam: EOMI, Normal appearance - ENT Exam ENT Exam: Mucous Membranes Moist, Normal Exam - Neck Exam Neck exam: Positive for: Full Rom, Normal Inspection - Respiratory Exam Respiratory Exam: Clear to Auscultation Bilateral, NORMAL BREATHING PATTERN. absent: Rales, Rhonchi, Wheezes, Respiratory Distress - Cardiovascular Exam Cardiovascular Exam: REGULAR RHYTHM, +S1, +S2 - GI/Abdominal Exam GI & Abdominal Exam: Guarding (LLQ, suprapubic), Normal Bowel Sounds, Soft, Tenderness (LLQ, suprapubic). absent: Distended (obese), Firm, Hernia, Rebound, Rigid Additional comments: well healed supraumbilical midline incisional scar - Rectal Exam Rectal Exam: NORMAL INSPECTION. absent: Hemorrhoids, Fecal Impaction - Extremities Exam Extremities exam: Positive for: normal inspection - Back Exam Back exam: NORMAL INSPECTION - Neurological Exam Neurological exam: Alert, CN II-XII Intact, Oriented x3 - Psychiatric Exam Psychiatric exam: Normal Affect, Normal Mood - Skin Skin Exam: Dry, Intact, Normal Color, Warm Results - Vital Signs Recent Vital Signs: Last Vital Signs Temp 98.2 F 07/02/18 02:16 Pulse 85 07/02/18 02:16 Resp 20 07/02/18 02:16 BP 128/82 07/02/18 02:16 Pulse Ox 97 05/24/19 02:16 - Labs Result Diagrams: 07/02/18 00:35 07/02/18 00:35 Labs: Laboratory Results - last 24 hr 07/02/18 07/02/18 07/02/18 00:35 00:35 00:35 WBC 8.6 D RBC 4.69 Hgb 11.9 L D Hct 36.6 MCV 77.9 L MCH 25.4 L MCHC 32.6 L RDW 14.9 H Plt Count 351 D MPV 7.7 Neut % (Auto) 73.6 Lymph % (Auto) 16.7 L [place] % (Auto) 8.9 Eos % (Auto) 0.4 Baso % (Auto) 0.4 Neut # (Auto) 6.3 Lymph # (Auto) 1.4 [place] # (Auto) 0.8 Eos # (Auto) 0.0 Baso # (Auto) 0.0 PT 14.8 H INR 1.4 APTT 34.5 H Sodium 137 Potassium 5.0 Chloride 102 Carbon Dioxide 27 Anion Gap 13 BUN 15 Creatinine 1.3 Est GFR ( Amer) > 60 Est GFR (Non-Af Amer) 59 Random Glucose 90 Calcium 9.1 Total Bilirubin 0.7 AST 47 ALT 29 Alkaline Phosphatase 58 Total Protein 7.9 Albumin 3.9 Globulin 4.0 H Albumin/Globulin Ratio 1.0 Lipase 58 Urine Color Urine Clarity Urine pH Ur Specific [place] Urine Protein Urine Glucose (UA) Urine Ketones Urine Blood Urine Nitrate Urine Bilirubin Urine Urobilinogen Ur Leukocyte Esterase Urine WBC (Auto) Urine RBC (Auto) Ur Squamous Epith Cells 07/02/18 00:35 WBC RBC Hgb Hct MCV MCH MCHC RDW Plt Count MPV Neut % (Auto) Lymph % (Auto) [place] % (Auto) Eos % (Auto) Baso % (Auto) Neut # (Auto) Lymph # (Auto) [place] # (Auto) Eos # (Auto) Baso # (Auto) PT INR APTT Sodium Potassium Chloride Carbon Dioxide Anion Gap BUN Creatinine Est GFR ( Amer) Est GFR (Non-Af Amer) Random Glucose Calcium Total Bilirubin AST ALT Alkaline Phosphatase Total Protein Albumin Globulin Albumin/Globulin Ratio Lipase Urine Color Yellow Urine Clarity Clear Urine pH 6.0 Ur Specific [place] 1.021 Urine Protein 1+ H Urine Glucose (UA) Normal Urine Ketones 1+ H Urine Blood Negative Urine Nitrate Negative Urine Bilirubin Negative Urine Urobilinogen Normal Ur Leukocyte Esterase Neg Urine WBC (Auto) < 1 Urine RBC (Auto) 1 Ur Squamous Epith Cells < 1 Assessment & Plan - Assessment and Plan (Free Text) Assessment: 48M w/diverticulitis Plan: NPO IVF Abx pain control Anti-emetic PRN FU FOBT Recommend GI consult for colonoscopy Will STEPHEN Barrett, PGY-2 - Date & Time Date: 07/02/18 Time: 04:30
[2018-07-02] MEDS: Lactated Ringer's 1,000 ML IV SCH ×3 (05:03→14:45)
[2018-07-02] MEDS ORDERED: Sodium Chloride 0.9% 1,000 ML IV SCH (07:45)
[2018-07-02] MEDS ORDERED: Piperacillin/Tazobact 3.375 GM in Sodium Chloride 100 ML IVPB SCH (09:00)
--- NOTE | 2018-07-02 09:03 | RAD ---
Date of service: 07/02/2018 HISTORY: Abdominal pain COMPARISON: 02/02/2017 FINDINGS: LUNGS: No active pulmonary disease. PLEURA: No significant pleural effusion identified, no pneumothorax apparent. CARDIOVASCULAR: No aortic atherosclerotic calcification present. Normal cardiac size. OSSEOUS STRUCTURES: No significant abnormalities. VISUALIZED UPPER ABDOMEN: Normal. OTHER FINDINGS: None. IMPRESSION: No active disease.
[2018-07-02] MEDS: Enoxaparin 40 mg Syringe SC SCH (09:32)
[2018-07-02] MEDS: metroNIDAZOLE IV 500 mg/100 ml 500 MG/100 ML BAG IVPB SCH ×2 (09:33→16:46)
--- NOTE | 2018-07-02 10:13 | CT ---
CT abdomen and pelvis HISTORY: Abdominal distention. Comparison: None. Technique: Multiple contiguous axial images were performed through the abdomen and pelvis with the use of intravenous contrast. Subsequently, sagittal and coronal reformatted images were obtained. This CT exam was performed using one or more of the following dose reduction techniques: Automated exposure control, adjustment of the mA and/or kV according to patient size, and/or use of iterative reconstruction technique. Findings: Scattered atelectasis at the lung bases. No pleural or pericardial effusion. Liver and gallbladder are preserved. Spleen is preserved. Nodular thickening of the right adrenal gland measuring up to 1.2 centimeters. This would be better delineated within multiphasic contrast enhanced CT or MR if clinically indicated. Mild nodularity of the left adrenal gland. Pancreas is preserved. Small hiatal hernia. Right kidney: No calculi or hydronephrosis. Left Kidney: No calculi or hydronephrosis. Underdistended urinary bladder. Heterogeneous prostate. Colonic diverticulosis. Prominent focal colonic thickening at the level of the mid sigmoid colon with adjacent free peritoneal air and fluid. The fluid appears somewhat confluent measuring up to 4.8 x 2.9 centimeters. This is suggestive for a ruptured acute sigmoid diverticulitis with associated perforation and free air in the adjacent abdomen. Suggestion of a developing phlegmon and or possible abscess collection. Clinical correlation. Appendix is within normal limits. Degenerative changes in the spine. Impression: 1. Colonic diverticulosis. Prominent focal colonic thickening at the level of the mid sigmoid colon with adjacent free peritoneal air and fluid. The fluid appears somewhat confluent measuring up to 4.8 x 2.9 centimeters. This is suggestive for a ruptured acute sigmoid diverticulitis with associated perforation and free air in the adjacent abdomen. Suggestion of a developing phlegmon and or possible abscess collection. Clinical correlation. 2. Nodular thickening of the right adrenal gland measuring up to 1.2 centimeters. This would be better delineated within multiphasic contrast enhanced CT or MR if clinically indicated. Additional findings as above. A preliminary report was generated at 3:48 a.m. on 07/02/[address] Xena White from [email or web address].
[2018-07-02] MEDS: Piperacill/Tazo 3.375gm in Dex 3.375 GM/50 ML BAG IVPB SCH ×3 (11:46→16:44)
--- NOTE | 2018-07-02 22:47 | CP.PCM.HP ---
Present on Admission - Present on Admission Any Indicators Present on Admission: No Past Patient History - Infectious Disease Hx of Infectious Diseases: None - Past Medical History & Family History Past Medical History?: Yes - Past Social History Smoking Status: Never Smoked - CARDIAC Hx Hypercholesterolemia: Yes Hx Hypertension: Yes - MUSCULOSKELETAL/RHEUMATOLOGICAL Hx Falls: No - PSYCHIATRIC Hx Substance Use: No - SURGICAL HISTORY Hx Surgeries: Yes Other/Comment: ventral hernia repair. - ANESTHESIA Hx Anesthesia: Yes Hx Anesthesia Reactions: No Hx Malignant Hyperthermia: No Meds Allergies/Adverse Reactions: Allergies Allergy/AdvReac Type Severity Reaction Status Date / Time No Known Allergies Allergy Verified 07/01/18 23:55 Results - Vital Signs Recent Vital Signs: Last Vital Signs Temp 98.4 F 07/02/18 15:26 Pulse 90 07/02/18 15:38 Resp 18 07/02/18 15:26 BP 138/84 07/02/18 15:26 Pulse Ox 97 07/02/18 15:26 - Labs Result Diagrams: 07/02/18 00:35 07/02/18 00:35 Labs: Laboratory Results - last 24 hr 07/02/18 07/02/18 07/02/18 00:35 00:35 00:35 WBC 8.6 D RBC 4.69 Hgb 11.9 L D Hct 36.6 MCV 77.9 L MCH 25.4 L MCHC 32.6 L RDW 14.9 H Plt Count 351 D MPV 7.7 Neut % (Auto) 73.6 Lymph % (Auto) 16.7 L [place] % (Auto) 8.9 Eos % (Auto) 0.4 Baso % (Auto) 0.4 Neut # (Auto) 6.3 Lymph # (Auto) 1.4 [place] # (Auto) 0.8 Eos # (Auto) 0.0 Baso # (Auto) 0.0 PT 14.8 H INR 1.4 APTT 34.5 H Sodium 137 Potassium 5.0 Chloride 102 Carbon Dioxide 27 Anion Gap 13 BUN 15 Creatinine 1.3 Est GFR ( Amer) > 60 Est GFR (Non-Af Amer) 59 Random Glucose 90 Calcium 9.1 Total Bilirubin 0.7 AST 47 ALT 29 Alkaline Phosphatase 58 Total Protein 7.9 Albumin 3.9 Globulin 4.0 H Albumin/Globulin Ratio 1.0 Lipase 58 Urine Color Urine Clarity Urine pH Ur Specific [place] Urine Protein Urine Glucose (UA) Urine Ketones Urine Blood Urine Nitrate Urine Bilirubin Urine Urobilinogen Ur Leukocyte Esterase Urine WBC (Auto) Urine RBC (Auto) Ur Squamous Epith Cells Stool Occult Blood 07/02/18 07/02/18 00:35 04:32 WBC RBC Hgb Hct MCV MCH MCHC RDW Plt Count MPV Neut % (Auto) Lymph % (Auto) [place] % (Auto) Eos % (Auto) Baso % (Auto) Neut # (Auto) Lymph # (Auto) [place] # (Auto) Eos # (Auto) Baso # (Auto) PT INR APTT Sodium Potassium Chloride Carbon Dioxide Anion Gap BUN Creatinine Est GFR ( Amer) Est GFR (Non-Af Amer) Random Glucose Calcium Total Bilirubin AST ALT Alkaline Phosphatase Total Protein Albumin Globulin Albumin/Globulin Ratio Lipase Urine Color Yellow Urine Clarity Clear Urine pH 6.0 Ur Specific [place] 1.021 Urine Protein 1+ H Urine Glucose (UA) Normal Urine Ketones 1+ H Urine Blood Negative Urine Nitrate Negative Urine Bilirubin Negative Urine Urobilinogen Normal Ur Leukocyte Esterase Neg Urine WBC (Auto) < 1 Urine RBC (Auto) 1 Ur Squamous Epith Cells < 1 Stool Occult Blood Negative
[2018-07-03] MEDS: Lactated Ringer's 1,000 ML IV SCH (00:01)
[2018-07-03 00:55] VITALS: RESP 20
--- NOTE | 2018-07-03 03:47 | HP ---
CHIEF COMPLAINT: Lower abdominal pain. HISTORY OF PRESENT ILLNESS: This is a 48-year-old male, well known to me, with history of hypertension, hyperlipidemia with lower abdominal pain, suprapubic and left lower quadrant pain for one week. In the past, he has history of diverticulitis. The patient is with moderate testicular pain which is constant, sharp, and alleviated by Tylenol. No aggravating factors. At times, bowel habits are sluggish and he gets constipated. Other than that, the patient has decreased appetite, lower abdominal pain, nausea. No vomiting. The patient denies any diarrhea. He denies any bleeding per rectum. He denies any fever, chills or rigors. He denies any polyuria, polydipsia, or polyphagia. He denies any history of hematuria or pyuria. He denies any sneezing, itchy eyes, or itchy nose. He denies any joint pain or hip pain. He denied any skin rash. He denied any history of cough, sore throat or runny nose. There is no history of joint pain or hip pain. PAST MEDICAL HISTORY: Hypertension, hyperlipidemia, umbilical hernia repair. SOCIAL HISTORY: Nonsmoker. Non-ETOH user. CURRENT MEDICATIONS: The patient is on omeprazole and losartan. FAMILY HISTORY: Noncontributory. PHYSICAL EXAMINATION: GENERAL: A middle-aged male in moderate distress. VITAL SIGNS: Blood pressure 138/84, pulse 98, respiratory rate 18, temperature 98.4. SKIN: No rashes. No bruises. No purpura. No petechiae. No ecchymosis. HEENT: Atraumatic and normocephalic. Negative pallor. Negative jaundice. Extraocular movements are intact. NECK: Supple. No JVD. No lymph node. No thyromegaly. CHEST WALL: Bilaterally symmetrical expansion. LUNGS: Bilaterally clear. No rales. No rhonchi. CARDIOVASCULAR SYSTEM: S1 and S2, regular. No heave. No thrill. RECTAL: Negative. ABDOMEN: There is hypogastric tenderness. No guarding. No rebound. No rigidity. EXTREMITIES: No clubbing, cyanosis or edema. CENTRAL NERVOUS SYSTEM: Normal. ASSESSMENT: 1. Acute diverticulitis with perforated colon. 2. Dehydration. PLAN: Admit. Detailed orders are written. Seen and examined. Wild Joel MD
[2018-07-03] MEDS: Piperacill/Tazo 3.375gm in Dex 3.375 GM/50 ML BAG IVPB SCH ×4 (04:30→21:35)
--- NOTE | 2018-07-03 07:45 | CP.PCM.PN ---
Subjective - Date & Time of Evaluation Date of Evaluation: 07/03/18 Time of Evaluation: 07:42 - Subjective Subjective: Surgery Progress Note for Dr. Olsen 48M seen and evaluated at bedside this morning. No acute events overnight. No complaints this morning. Patient still had LLQ pain, improving. Does not have much appetite. One episode of diarrhea yesterday. Denies f/c, n/v, SOB, CP, or urinary symptoms. Objective - Vital Signs/Intake and Output Vital Signs (last 24 hours): Temp Pulse Resp BP Pulse Ox 98.3 F 89 20 138/82 95 07/02/18 23:40 07/03/18 06:27 07/02/18 23:40 07/02/18 23:40 07/02/18 23:40 Intake and Output: 07/03/18 07/03/18 06:59 18:59 Intake Total 1200 Balance 1200 - Medications Medications: Current Medications Enoxaparin Sodium (Lovenox) 40 mg SC DAILY [facility] Last Admin: 07/02/18 09:32 Dose: 40 mg Hydromorphone HCl (Dilaudid) 0.5 mg IVP Q3H PRN PRN Reason: Pain, severe (8-10) Lactated Ringer's (Lactated Ringer's) 1,000 mls @ 150 mls/hr IV .Q6H40M [facility] Last Admin: 07/03/18 00:01 Dose: 150 mls/hr Piperacillin Sod/Tazobactam Sod (Zosyn 3.375 Gm Iv Premix) 3.375 gm in 50 mls @ 100 mls/hr IVPB Q6H [facility]; Protocol Last Admin: 07/03/18 04:30 Dose: 100 mls/hr Metronidazole (Flagyl) 500 mg in 100 mls @ 100 mls/hr IVPB Q8H [facility]; Protocol Last Admin: 07/03/18 00:00 Dose: 100 mls/hr Ketorolac Tromethamine (Toradol) 30 mg IVP Q6H PRN PRN Reason: Pain, moderate (4-7) Last Admin: 07/02/18 21:13 Dose: 30 mg Losartan Potassium (Cozaar) 50 mg PO DAILY [facility] Last Admin: 07/02/18 09:32 Dose: 50 mg Morphine Sulfate (Morphine) 2 mg IVP Q4 PRN PRN Reason: Pain, moderate (4-7) Ondansetron HCl (Zofran Inj) 4 mg IVP Q4H PRN PRN Reason: Nausea/Vomiting Pantoprazole Sodium (Protonix Inj) 40 mg IVP DAILY [facility] Last Admin: 07/02/18 09:32 Dose: 40 mg - Labs Labs: 07/02/18 00:35 07/02/18 00:35 PT 14.8 SECONDS (9.7-12.2) H 07/02/18 00:35 INR 1.4 07/02/18 00:35 APTT 34.5 SECONDS (21-34) H 07/02/18 00:35 - Constitutional Appears: Well, Non-toxic, No Acute Distress - Head Exam Head Exam: ATRAUMATIC, NORMAL INSPECTION, NORMOCEPHALIC - Eye Exam Eye Exam: EOMI Pupil Exam: PERRL - ENT Exam ENT Exam: Mucous Membranes Moist - Respiratory Exam Respiratory Exam: NORMAL BREATHING PATTERN. absent: Wheezes, Respiratory Distress - GI/Abdominal Exam GI & Abdominal Exam: Distended, Soft, Tenderness, Normal Bowel Sounds. absent: Guarding, Rebound - Extremities Exam Extremities Exam: Normal Inspection - Neurological Exam Neurological Exam: Alert, Awake, Oriented x3 - Psychiatric Exam Psychiatric exam: Normal Affect, Normal Mood - Skin Skin Exam: Dry, Intact, Normal Color, Warm Assessment and Plan - Assessment and Plan (Free Text) Assessment: 48M w/ diverticulitis Plan: Continue NPO today Advance diet once patient's pain resolved IV Abx IVF Antiemetics and analgesics PRN Stool occult negative Further recs per Dr. Raúl Corcoran PGY1
[2018-07-03] MEDS: metroNIDAZOLE IV 500 mg/100 ml 500 MG/100 ML BAG IVPB SCH ×3 (09:13→21:36)
[2018-07-03] MEDS: Enoxaparin 40 mg Syringe SC SCH (09:13)
[2018-07-03] MEDS ORDERED: Phytonadione 10 mg/ml Inj (Adult) SC STA (11:25)
--- NOTE | 2018-07-03 23:10 | PN ---
DATE: 07/03/2018 SUBJECTIVE: The patient has still lower abdominal pain, generalized weakness, and nausea. No vomiting. He is n.p.o. He is being seen by GI surgery. No fever. No chills. On antibiotics. PHYSICAL EXAMINATION: VITAL SIGNS: Blood pressure 130/80, pulse 77, respiratory rate 16, and temperature 99. LUNGS: Bilaterally clear. CARDIOVASCULAR SYSTEM: S1 and S2, regular. ABDOMEN: Left lower quadrant and hypogastric tenderness. ASSESSMENT: Acute diverticulosis with perforation on conservative medical management. PLAN: Continue antibiotics, n.p.o. and IV fluids. Wild Joel MD
[2018-07-04] MEDS: metroNIDAZOLE IV 500 mg/100 ml 500 MG/100 ML BAG IVPB SCH ×3 (00:20→17:25)
[2018-07-04] MEDS: Lactated Ringer's 1,000 ML IV SCH ×2 (00:21→15:46)
[2018-07-04] MEDS: Piperacill/Tazo 3.375gm in Dex 3.375 GM/50 ML BAG IVPB SCH ×3 (05:02→21:34)
--- NOTE | 2018-07-04 07:40 | CP.PCM.PN ---
Subjective - Date & Time of Evaluation Date of Evaluation: 07/04/18 Time of Evaluation: 07:55 - Subjective Subjective: Surgery Progress Note for Dr. Olsen Patient seen and evaluated at bedside this morning. No acute events overnight. No complaints this morning. Patient reports pain is improving. He does not have much of an appetite. Admits to BM and passing flatus. Denies f/c, n/v, SOB, CP, or urinary symptoms. Objective - Vital Signs/Intake and Output Vital Signs (last 24 hours): Temp Pulse Resp BP Pulse Ox 98.7 F 88 20 147/85 96 07/03/18 23:35 07/04/18 00:37 07/03/18 23:35 07/03/18 23:35 07/03/18 23:35 - Medications Medications: Current Medications Enoxaparin Sodium (Lovenox) 40 mg SC DAILY [facility] Last Admin: 07/03/18 09:13 Dose: 40 mg Hydromorphone HCl (Dilaudid) 0.5 mg IVP Q3H PRN PRN Reason: Pain, severe (8-10) Lactated Ringer's (Lactated Ringer's) 1,000 mls @ 150 mls/hr IV .Q6H40M [facility] Last Admin: 07/04/18 00:21 Dose: 150 mls/hr Piperacillin Sod/Tazobactam Sod (Zosyn 3.375 Gm Iv Premix) 3.375 gm in 50 mls @ 100 mls/hr IVPB Q6H [facility]; Protocol Last Admin: 07/04/18 05:02 Dose: 100 mls/hr Metronidazole (Flagyl) 500 mg in 100 mls @ 100 mls/hr IVPB Q8H [facility]; Protocol Last Admin: 07/04/18 00:20 Dose: 100 mls/hr Ketorolac Tromethamine (Toradol) 30 mg IVP Q6H PRN PRN Reason: Pain, moderate (4-7) Last Admin: 07/02/18 21:13 Dose: 30 mg Losartan Potassium (Cozaar) 50 mg PO DAILY [facility] Last Admin: 07/03/18 09:13 Dose: 50 mg Morphine Sulfate (Morphine) 2 mg IVP Q4 PRN PRN Reason: Pain, moderate (4-7) Ondansetron HCl (Zofran Inj) 4 mg IVP Q4H PRN PRN Reason: Nausea/Vomiting Pantoprazole Sodium (Protonix Inj) 40 mg IVP DAILY [facility] Last Admin: 07/03/18 09:13 Dose: 40 mg - Labs Labs: 07/02/18 00:35 07/02/18 00:35 PT 14.8 SECONDS (9.7-12.2) H 07/02/18 00:35 INR 1.4 07/02/18 00:35 APTT 34.5 SECONDS (21-34) H 07/02/18 00:35 - Additional Findings Additional findings: - Constitutional Appears: Well, Non-toxic, No Acute Distress - Head Exam Head Exam: ATRAUMATIC, NORMAL INSPECTION, NORMOCEPHALIC - Eye Exam Eye Exam: EOMI Pupil Exam: PERRL - ENT Exam ENT Exam: Mucous Membranes Moist - Respiratory Exam Respiratory Exam: NORMAL BREATHING PATTERN. absent: Wheezes, Respiratory Distress - GI/Abdominal Exam GI & Abdominal Exam: Distended, Soft, Tenderness (mild, improved), Normal Bowel Sounds. absent: Guarding, Rebound - Extremities Exam Extremities Exam: Normal Inspection - Neurological Exam Neurological Exam: Alert, Awake, Oriented x3 - Psychiatric Exam Psychiatric exam: Normal Affect, Normal Mood - Skin Skin Exam: Dry, Intact, Normal Color, Warm Medardo Imbrescia PGY2 Assessment and Plan - Assessment and Plan (Free Text) Assessment: 48M w/ diverticulitis Plan: CLD, ADAT f/u am labs IV Abx IVF Antiemetics and analgesics PRN Further recs as per Dr. Olsen
[2018-07-04 08:36] LABS: BASO % 0.4 % (0.0-2.0); EOS # 0.1 K/uL (0.0-0.7); EOS % 1.1 % (0.0-4.0); HEMOGLOBIN 11.5 g/dL (12.0-18.0); LYMPH # 1.3 K/uL (1.0-4.3); LYMPH % 17.4 % (20.0-40.0); MEAN CELL VOLUME 77.6 fL (80.0-94.0); MEAN CORPUSCULAR HEMOGLOBIN 25.4 pg (27.0-31.0); MEAN CORPUSCULAR HGB CONC 32.8 g/dL (33.0-37.0); MEAN PLATELET VOLUME 7.7 fL (7.2-11.7); MONO # 0.7 K/uL (0.0-0.8); MONO % 10.2 % (0.0-10.0); NEUT # 5.2 K/uL (1.8-7.0); NEUT % 70.9 % (50.0-75.0); NRBC % 0.1 % (0.0-2.0); RBC 4.52 Mil/uL (4.40-5.90); RED CELL DISTRIBUTION WIDTH 14.8 % (11.5-14.5); WHITE BLOOD COUNT 7.3 K/uL (4.8-10.8)
[2018-07-04 08:54] LABS: ALBUMIN 3.5 g/dL (3.5-5.0); BLOOD UREA NITROGEN 15 mg/dL (9-20); GFR NON-AFRICAN AMERICAN 54
[2018-07-04 08:55] LABS: ALT/SGPT 24 U/L (21-72); AST/SGOT 26 U/L (17-59)
[2018-07-04] MEDS: Enoxaparin 40 mg Syringe SC SCH (10:48)
--- NOTE | 2018-07-04 14:57 | PN ---
DATE: 07/04/2018 LOCATION: 672, bed A. SUBJECTIVE: This is a 48-year-old male, seen in rounds with less abdominal pain. No reported active bleeding with bowel movement x1 and had been passing gas recently. The patient still has mild nausea and dyspepsia and loss of appetite, but no reported active GI bleeding. The entire chart is reviewed and the most recent lab results showed hemoglobin of 11.5 with low indices, but normal white cells and platelet count with normal SMA-18. Cancer marker, CEA level reported to be 1.5, normal. PHYSICAL EXAMINATION: GENERAL: A 48-year-old male awake, alert, oriented. VITAL SIGNS: Afebrile with pulse of 82, respiratory rate 20 to 22, blood pressure 144/86. HEENT: Showed pale, dry oral mucous membrane. Nonicteric sclerae. LUNGS: Few scattered crepitation. Decreased air entry at bases. HEART: Positive S1 and S2. ABDOMEN: Soft with mild generalized tenderness. No mass or organomegaly. No rebound tenderness or guarding. EXTREMITIES: Without significant clubbing, cyanosis, or edema. IMPRESSION: 1. Diverticulosis with acute diverticulitis. 2. Reported most likely perforated diverticulum, healed off. 3. Known history of hypertension and hyperlipidemia. 4. Anemia most likely secondary to above. SUGGESTIONS: 1. Agree with your plan. 2. Repeat CAT scan of the abdomen and pelvis or the patient may benefit from MRI as needed. 3. Surgical followup. 4. Further recommendation to follow. Rigoberto Sarmiento MD
--- NOTE | 2018-07-04 23:04 | CON ---
DATE: 07/03/[address] Rigoberto Sarmiento to Dr. Wild Joel. I was called for a GI consultation by the admitting MD. The patient is seen and fully examined on 07/03/2018. The entire chart is reviewed including, but not limited to the most recent lab and radiology study results, current and the previous medications list, current and the previous medical events, allergy to medication list as well as all the available current and the previous medical records. Case discussed with the staff at length as well as the admitting MD immediately before and after my GI consultation and physical examination on 07/03/2018. HISTORY OF PRESENT ILLNESS: This is a 48-year-old male that was admitted to the hospital through the emergency room due to severe abdominal pain, mainly in the lower quadrant, persistent for the last 5-7 days with periods of constipation, nausea and vomiting as well as low grade temperature, but no reported active bleeding. No chest pain, palpitation or significant shortness of breath. PAST MEDICAL HISTORY: Is including, 1. Peptic ulcer disease. 2. Hyperlipidemia. 3. Hypertension. FAMILY HISTORY: Unknown. CURRENT MEDICATIONS: Post admission medication lists were reviewed. ALLERGIES TO MEDICATIONS: UNCLEAR. SOCIAL HISTORY: No reported recent history of cigarette smoking or alcohol intake. Initial blood workup post admission showed low hemoglobin of 11.25 with thrombocytosis of 351 with white blood cells 8.6, but normal SMA-7. Official report of a CAT scan done at the time of the admission of the abdomen and pelvis is seen and discussed with the radiology staff. PHYSICAL EXAMINATION: GENERAL: A 48-year-old male seen in the presence of family members at bedside. VITAL SIGNS: Low-grade temperature with heart rate of 102, respiratory rate 20-22, and blood pressure of 138/82. HEENT: Showed dry mildly pale oral membrane. Nonicteric sclerae. LUNGS: Scattered crepitation with decreased air entry at bases. breathing sounds are present bilaterally. LYMPH NODES: No lymphadenitis or lymphadenopathy. HEART: Positive S1 and S2 with increased rate. ABDOMEN: Soft with mild distention with generalized tenderness, but mainly in the left lower quadrant area. No mass or organomegaly. No rebound tenderness or guarding. RECTAL: The patient refused. EXTREMITIES: Without significant clubbing, cyanosis or edema. NEUROLOGIC: No reported new neurological deficits, sensory or motor. The initial report of the most recently done CAT scan of the abdomen and pelvis is seen, indicative of diverticulosis, diverticulitis and possible perforated diverticulum. IMPRESSION: 1. Abnormal CAT scan of the abdomen and pelvis with evidence of possible diverticulitis and perforated acute sigmoid diverticulum. 2. Known history of hypertension and peptic ulcer disease with hyperlipidemia. SUGGESTIONS: 1. Continue current management. 2. Surgical reevaluation. 3. IV antibiotics. 4. Proton pump inhibitors IV. 5. Keep n.p.o. for now. 6. Peripheral hyperalimentation. 7. Cancer markers including CEA and PSA. Further recommendations to follow with Dr. Rigoberto Sarmiento. Rigoberto Sarmiento MD
[2018-07-05] MEDS: metroNIDAZOLE IV 500 mg/100 ml 500 MG/100 ML BAG IVPB SCH ×2 (00:44→09:05)
[2018-07-05] MEDS: Piperacill/Tazo 3.375gm in Dex 3.375 GM/50 ML BAG IVPB SCH ×2 (04:19→11:28)
[2018-07-05] MEDS: Enoxaparin 40 mg Syringe SC SCH (09:05)
--- NOTE | 2018-07-05 09:55 | PN ---
DATE: 07/05/2018 LOCATION: 672, bed A. SUBJECTIVE: This is a 48-year-old male seen and examined early in rounds with reported less abdominal pain, no reported active bleeding. No chest pain, palpitation or significant shortness of breath. The entire chart is reviewed including but not limited to the most recent lab and radiology study results and today's lab results still pending. It has to be mentioned that the patient still have low hemoglobin with low indices highly suggestive of hypochromic microcytic anemia and the recently ordered CEA showed normal results of 1.5. PHYSICAL EXAMINATION: GENERAL: A 48-year-old male. VITAL SIGNS: Afebrile with pulse of 80, respiratory rate 20 to 22, blood pressure 128/70. HEENT: Showed pale, dry oral mucous membrane. Nonicteric sclerae. LUNGS: Few scattered crepitation. Decreased air entry at bases. HEART: Positive S1 and S2. ABDOMEN: Soft with mild generalized tenderness. No mass or organomegaly. No rebound tenderness or guarding but left lower quadrant mild tenderness. EXTREMITIES: Without significant clubbing, cyanosis or edema. NEUROLOGIC: No reported new neurological deficit, sensory or motor. No reported new focal deficits. IMPRESSION: 1. Diverticulosis without acute diverticulitis. 2. Abnormal CAT scan of the abdomen and pelvis indicative of perforated sigmoid diverticulum, stable clinically. The patient having bowel movement and passing gas. 3. Anemia, most likely secondary to above. 4. Known history of hyperlipidemia as well as hypertension. SUGGESTIONS: 1. Continue current management. 2. Repeat CAT scan of the abdomen and pelvis before starting any diet. 3. Surgical followup. Rigoberto Sarmiento MD
--- NOTE | 2018-07-05 11:00 | CP.PCM.PN ---
Subjective - Date & Time of Evaluation Date of Evaluation: 07/05/18 Time of Evaluation: 08:28 - Subjective Subjective: Surgery Progress note. Dr. Olsen Pt seen and examined at bedside. No acute events overnight. No N/V/D. Tolerating liquids. No F/C. Tmax 100.2F. No new complaints. Has been having BM and flatus. Objective - Vital Signs/Intake and Output Vital Signs (last 24 hours): Temp Pulse Resp BP Pulse Ox 98.9 F 89 20 142/91 H 96 07/05/18 07:45 07/05/18 07:45 07/05/18 07:45 07/05/18 07:45 07/05/18 07:45 Intake and Output: 07/05/18 07/05/18 06:59 18:59 Intake Total 600 Balance 600 - Medications Medications: Current Medications Enoxaparin Sodium (Lovenox) 40 mg SC DAILY [facility] Last Admin: 07/05/18 09:05 Dose: 40 mg Hydromorphone HCl (Dilaudid) 0.5 mg IVP Q3H PRN PRN Reason: Pain, severe (8-10) Lactated Ringer's (Lactated Ringer's) 1,000 mls @ 75 mls/hr IV .[id number] [facility] Last Admin: 07/04/18 15:46 Dose: 75 mls/hr Piperacillin Sod/Tazobactam (Sod 3.375 gm/ Sodium Chloride) 100 mls @ 200 mls/hr IVPB Q6H [facility]; Protocol Losartan Potassium (Cozaar) 50 mg PO DAILY [facility] Last Admin: 07/05/18 09:06 Dose: 50 mg Morphine Sulfate (Morphine) 2 mg IVP Q4 PRN PRN Reason: Pain, moderate (4-7) Ondansetron HCl (Zofran Inj) 4 mg IVP Q4H PRN PRN Reason: Nausea/Vomiting Pantoprazole Sodium (Protonix Inj) 40 mg IVP DAILY [facility] Last Admin: 07/05/18 09:05 Dose: 40 mg - Labs Labs: 07/04/18 08:21 07/04/18 08:21 PT 14.8 SECONDS (9.7-12.2) H 07/02/18 00:35 INR 1.4 07/02/18 00:35 APTT 34.5 SECONDS (21-34) H 07/02/18 00:35 - Constitutional Appears: Well, Non-toxic, No Acute Distress - Head Exam Head Exam: ATRAUMATIC, NORMAL INSPECTION, NORMOCEPHALIC - Eye Exam Eye Exam: EOMI, Normal appearance. absent: Scleral icterus - ENT Exam ENT Exam: Mucous Membranes Moist - Respiratory Exam Respiratory Exam: NORMAL BREATHING PATTERN. absent: Accessory Muscle Use, Respiratory Distress - GI/Abdominal Exam GI & Abdominal Exam: Soft. absent: Distended, Firm, Guarding, Rigid, Rebound Additional comments: Mild tenderness to palpation LLQ - Extremities Exam Extremities Exam: Normal Inspection. absent: Calf Tenderness - Neurological Exam Neurological Exam: Alert, Awake, Oriented x3 - Psychiatric Exam Psychiatric exam: Normal Affect, Normal Mood - Skin Skin Exam: Dry, Intact, Normal Color, Warm Assessment and Plan - Assessment and Plan (Free Text) Assessment: 48yo M with sigmoid diverticulitis Plan: - ADAT, Now on FLD. - IV Abx, renewed - IVF - Encourage OOBTC and Ambulate - Antiemetics and Pain control as needed - f/u labs in AM Further recs as per Dr. Raúl Donahue PGY2 surgery
[2018-07-05] MEDS: Piperacillin/Tazobact 3.375 GM in Sodium Chloride 100 ML IVPB SCH ×3 (11:28→22:20)
--- NOTE | 2018-07-05 22:08 | CP.PCM.PN ---
Subjective - Date & Time of Evaluation Date of Evaluation: 07/03/18 Time of Evaluation: 09:00 - Subjective Subjective: dict Objective - Vital Signs/Intake and Output Vital Signs (last 24 hours): Temp Pulse Resp BP Pulse Ox 98.9 F 90 20 142/91 H 96 07/05/18 07:45 07/05/18 15:42 07/05/18 07:45 07/05/18 07:45 07/05/18 07:45 - Medications Medications: Current Medications Enoxaparin Sodium (Lovenox) 40 mg SC DAILY [facility] Last Admin: 07/05/18 09:05 Dose: 40 mg Hydromorphone HCl (Dilaudid) 0.5 mg IVP Q3H PRN PRN Reason: Pain, severe (8-10) Lactated Ringer's (Lactated Ringer's) 1,000 mls @ 75 mls/hr IV .[id number] [facility] Last Admin: 07/04/18 15:46 Dose: 75 mls/hr Piperacillin Sod/Tazobactam (Sod 3.375 gm/ Sodium Chloride) 100 mls @ 200 mls/hr IVPB Q6H [facility]; Protocol Last Admin: 07/05/18 17:18 Dose: 200 mls/hr Losartan Potassium (Cozaar) 50 mg PO DAILY [facility] Last Admin: 07/05/18 09:06 Dose: 50 mg Morphine Sulfate (Morphine) 2 mg IVP Q4 PRN PRN Reason: Pain, moderate (4-7) Ondansetron HCl (Zofran Inj) 4 mg IVP Q4H PRN PRN Reason: Nausea/Vomiting Pantoprazole Sodium (Protonix Inj) 40 mg IVP DAILY [facility] Last Admin: 07/05/18 09:05 Dose: 40 mg - Labs Labs: 07/04/18 08:21 07/04/18 08:21 PT 14.8 SECONDS (9.7-12.2) H 07/02/18 00:35 INR 1.4 07/02/18 00:35 APTT 34.5 SECONDS (21-34) H 07/02/18 00:35
--- NOTE | 2018-07-05 22:09 | CP.PCM.PN ---
Subjective - Date & Time of Evaluation Date of Evaluation: 07/05/18 Time of Evaluation: 09:00 - Subjective Subjective: dict Objective - Vital Signs/Intake and Output Vital Signs (last 24 hours): Temp Pulse Resp BP Pulse Ox 98.9 F 90 20 142/91 H 96 07/05/18 07:45 07/05/18 15:42 07/05/18 07:45 07/05/18 07:45 07/05/18 07:45 - Medications Medications: Current Medications Enoxaparin Sodium (Lovenox) 40 mg SC DAILY [facility] Last Admin: 07/05/18 09:05 Dose: 40 mg Hydromorphone HCl (Dilaudid) 0.5 mg IVP Q3H PRN PRN Reason: Pain, severe (8-10) Lactated Ringer's (Lactated Ringer's) 1,000 mls @ 75 mls/hr IV .[id number] [facility] Last Admin: 07/04/18 15:46 Dose: 75 mls/hr Piperacillin Sod/Tazobactam (Sod 3.375 gm/ Sodium Chloride) 100 mls @ 200 mls/hr IVPB Q6H [facility]; Protocol Last Admin: 07/05/18 17:18 Dose: 200 mls/hr Losartan Potassium (Cozaar) 50 mg PO DAILY [facility] Last Admin: 07/05/18 09:06 Dose: 50 mg Morphine Sulfate (Morphine) 2 mg IVP Q4 PRN PRN Reason: Pain, moderate (4-7) Ondansetron HCl (Zofran Inj) 4 mg IVP Q4H PRN PRN Reason: Nausea/Vomiting Pantoprazole Sodium (Protonix Inj) 40 mg IVP DAILY [facility] Last Admin: 07/05/18 09:05 Dose: 40 mg - Labs Labs: 07/04/18 08:21 07/04/18 08:21 PT 14.8 SECONDS (9.7-12.2) H 07/02/18 00:35 INR 1.4 07/02/18 00:35 APTT 34.5 SECONDS (21-34) H 07/02/18 00:35
--- NOTE | 2018-07-05 22:09 | CP.PCM.PN ---
Subjective - Date & Time of Evaluation Date of Evaluation: 07/04/18 Time of Evaluation: 09:00 - Subjective Subjective: dict Objective - Vital Signs/Intake and Output Vital Signs (last 24 hours): Temp Pulse Resp BP Pulse Ox 98.9 F 90 20 142/91 H 96 07/05/18 07:45 07/05/18 15:42 07/05/18 07:45 07/05/18 07:45 07/05/18 07:45 - Medications Medications: Current Medications Enoxaparin Sodium (Lovenox) 40 mg SC DAILY [facility] Last Admin: 07/05/18 09:05 Dose: 40 mg Hydromorphone HCl (Dilaudid) 0.5 mg IVP Q3H PRN PRN Reason: Pain, severe (8-10) Lactated Ringer's (Lactated Ringer's) 1,000 mls @ 75 mls/hr IV .[id number] [facility] Last Admin: 07/04/18 15:46 Dose: 75 mls/hr Piperacillin Sod/Tazobactam (Sod 3.375 gm/ Sodium Chloride) 100 mls @ 200 mls/hr IVPB Q6H [facility]; Protocol Last Admin: 07/05/18 17:18 Dose: 200 mls/hr Losartan Potassium (Cozaar) 50 mg PO DAILY [facility] Last Admin: 07/05/18 09:06 Dose: 50 mg Morphine Sulfate (Morphine) 2 mg IVP Q4 PRN PRN Reason: Pain, moderate (4-7) Ondansetron HCl (Zofran Inj) 4 mg IVP Q4H PRN PRN Reason: Nausea/Vomiting Pantoprazole Sodium (Protonix Inj) 40 mg IVP DAILY [facility] Last Admin: 07/05/18 09:05 Dose: 40 mg - Labs Labs: 07/04/18 08:21 07/04/18 08:21 PT 14.8 SECONDS (9.7-12.2) H 07/02/18 00:35 INR 1.4 07/02/18 00:35 APTT 34.5 SECONDS (21-34) H 07/02/18 00:35
--- NOTE | 2018-07-06 01:30 | PN ---
DATE: 07/05/2018 SUBJECTIVE: The patient is on clear liquid diet, and he is feeling better. He has decreased abdominal pain. No nausea or vomiting. PHYSICAL EXAMINATION: VITAL SIGNS: Blood pressure 122/91, pulse 79, respiratory rate 20, temperature 98.9. LUNGS: Clear. CARDIOVASCULAR SYSTEM: S1 and S2, regular. ABDOMEN: Soft. ASSESSMENT: Acute diverticulitis with perforation. PLAN: Proceed with diet. Monitor patient. Wild Joel MD
[2018-07-06] MEDS: Piperacillin/Tazobact 3.375 GM in Sodium Chloride 100 ML IVPB SCH ×3 (05:24→16:14)
[2018-07-06 07:26] LABS: BASO % 0.5 % (0.0-2.0); EOS # 0.1 K/uL (0.0-0.7); LYMPH # 0.9 K/uL (1.0-4.3); MEAN CELL VOLUME 77.1 fL (80.0-94.0); MEAN CORPUSCULAR HEMOGLOBIN 25.5 pg (27.0-31.0); MEAN CORPUSCULAR HGB CONC 33.1 g/dL (33.0-37.0); MEAN PLATELET VOLUME 7.2 fL (7.2-11.7); MONO # 0.7 K/uL (0.0-0.8); MONO % 20.9 % (0.0-10.0); NEUT # 1.7 K/uL (1.8-7.0); NEUT % 49.6 % (50.0-75.0); PLATELET COUNT 420 K/uL (130-400); RBC 4.69 Mil/uL (4.40-5.90)
[2018-07-06 07:28] LABS: WHITE BLOOD COUNT 3.5 K/uL (4.8-10.8)
--- NOTE | 2018-07-06 07:38 | CON ---
DATE: 07/03/2018 LOCATION: 672, bed A. I was called for GI consultation by the admitting MD. The patient is seen and fully examined on 07/03/[address] Joel with complaint of abdominal pain and abnormal CAT scan of the abdomen and pelvis indicative of perforated viscus. The patient also complained of diarrhea. The entire chart is reviewed and most recent lab results showed low hemoglobin with increased PT and PTT. FINAL DIAGNOSES: 1. Diverticulosis with acute diverticulitis. 2. To rule out occult gastrointestinal malignancy. 3. Further recommendation to follow. 4. The patient has a known history of poorly controlled hypertension. The patient is seen in the presence of family members and sisters at bedside and further recommendation to be considered. Decide full surgical evaluation and repeat CAT scan of the abdomen and pelvis if there is no significant improvement. Thank you for letting me participate in your patient's case management. We will follow up closely with you. Rigoberto Sarmiento MD
--- NOTE | 2018-07-06 07:45 | PN ---
DATE: 07/06/2018 LOCATION: 672, bed A. SUBJECTIVE: This is a 48-year-old male seen and examined early in rounds without significant clinical changes or reported active bleeding with less abdominal pain, passing gas, no reported active bleeding. No nausea or vomiting this morning. The entire chart is reviewed including the most recent lab results and today's lab results still pending but the patient reported to have low hemoglobin with low indices, but normal white blood cells. PHYSICAL EXAMINATION: GENERAL: A 48-year-old male, awake, alert, oriented. VITAL SIGNS: Afebrile with pulse of 78, blood pressure 140/86, respiratory rate 20 to 22. HEENT: Showed pale, dry oral mucous membrane. Nonicteric sclerae. LUNGS: Few scattered crepitation. Decreased air entry at bases. HEART: Positive S1 and S2. ABDOMEN: Soft with mild generalized tenderness. No mass or organomegaly. No rebound tenderness or guarding. EXTREMITIES: Without significant clubbing, cyanosis or edema. NEUROLOGIC: No reported new neurological deficits, sensory or motor. On record, the patient still has mild left lower quadrant abdominal tenderness. IMPRESSION: 1. Diverticulosis without acute diverticulitis. 2. Abnormal CAT scan of the abdomen and pelvis indicative of perforated diverticulum. 3. Anemia, most likely secondary to above. 4. Known history of hypertension and hyperlipidemia. SUGGESTIONS: 1. Agree with your plan. 2. Continue current medical treatment. 3. Repeat abdominal and pelvic CAT scan. 4. Further recommendation to follow. Rigoberto Sarmiento MD
[2018-07-06 07:47] LABS: CALCIUM 9.1 mg/dl (8.6-10.4)
[2018-07-06] MEDS: Lactated Ringer's 1,000 ML IV SCH (08:00)
[2018-07-06] MEDS ORDERED: Potassium Chloride 20 mEq ER Tab PO ONE (08:40)
[2018-07-06 08:57] LABS: BANDS 1 % (0-2); EOSINOPHIL 1 % (0-4); LYMPHOCYTE 29 % (20-40); MONOCYTE 14 % (0-10); NEUTROPHIL 55 % (50-75); PLATELET ESTIMATE SLIGHTLY INCREASED (NORMAL); TOTAL CELLS COUNTED 100
[2018-07-06 08:58] LABS: ANISOCYTOSIS SLIGHT; HYPOCHROMIC SLIGHT; POLYCHROMIC SLIGHT
[2018-07-06] MEDS: Enoxaparin 40 mg Syringe SC SCH (10:13)
--- NOTE | 2018-07-06 15:46 | CP.PCM.PN ---
Subjective - Date & Time of Evaluation Date of Evaluation: 07/06/18 Time of Evaluation: 15:00 - Subjective Subjective: Patient seen today denies any abdominal pain, N/V/D, fever, chills , tolerating diet without any problems a febrile labs and vss reviewed- stable -no leukocytosis. wbc- 3.1 , k- 3.5 - replaced Objective - Vital Signs/Intake and Output Vital Signs (last 24 hours): Temp Pulse Resp BP Pulse Ox 98.4 F 84 20 137/86 94 L 07/06/18 08:05 07/06/18 10:00 07/06/18 08:05 07/06/18 08:05 07/06/18 08:05 - Medications Medications: Current Medications Enoxaparin Sodium (Lovenox) [address] [facility] Last Admin: 07/06/18 10:13 Dose: 40 mg Lactated Ringer's (Lactated Ringer's) 1,000 mls @ 75 mls/hr IV .[id number] [facility] Last Admin: 07/06/18 08:00 Dose: Not Given Piperacillin Sod/Tazobactam (Sod 3.375 gm/ Sodium Chloride) 100 mls @ 200 mls/hr IVPB Q6H [facility]; Protocol Last Admin: 07/06/18 10:15 Dose: 200 mls/hr Losartan Potassium (Cozaar) [address] [facility] Last Admin: 07/06/18 10:12 Dose: 50 mg Ondansetron HCl (Zofran Inj) 4 mg IVP Q4H PRN PRN Reason: Nausea/Vomiting Pantoprazole Sodium (Protonix Inj) [address] [facility] Last Admin: 07/06/18 10:12 Dose: 40 mg - Labs Labs: 07/06/18 07:09 07/06/18 07:09 PT 14.8 SECONDS (9.7-12.2) H 07/02/18 00:35 INR 1.4 07/02/18 00:35 APTT 34.5 SECONDS (21-34) H 07/02/18 00:35 - Constitutional Appears: Well, Non-toxic, No Acute Distress - Respiratory Exam Respiratory Exam: Clear to Ausculation Bilateral, NORMAL BREATHING PATTERN - Cardiovascular Exam Cardiovascular Exam: REGULAR RHYTHM - GI/Abdominal Exam GI & Abdominal Exam: Soft, Normal Bowel Sounds - Neurological Exam Neurological Exam: Alert, Awake, Oriented x3 Assessment and Plan - Assessment and Plan (Free Text) Assessment: A/P 48 yr old male with HTN, Hypercholesterolemia presented to ED with LLQ abdominal pain x [address] - abdomen- Colonic diverticulosis, Perforated acute sigmoid diverticulitis, Surrounding minimal pockets of free perisigmoid gas. Dr. Olsen consulted NO LEUKOCYTOSIS, A FEBRILE AND PT ASYMPTMATIC AND TOLERATING DIET D/w surgical team , pt tolerating diet and asymptomatic, no surgical intervention, cleared for discharge home from surgical standpoint and continue antibiotics for 14 day s d/W Dr. Joel, stable for discharge home today and f/u with Dr. Joel office in 1 week Discharge plan discussed with patient who understands and agrees with plan patient instructed to returns to ED if he develops any fever, abdominal pain, n/v RX e prescribed to pharmacy
[2018-07-06 18:57] VITALS: PULSE 94
--- NOTE | 2018-07-06 22:14 | CP.PCM.DIS ---
Provider - Provider Date of Admission: 07/02/18 03:55 Attending physician: Wild Joel MD Consults: 07/02/18 04:35 Physician Consult Routine Comment: Consulting Provider: Car Olsen Consulting Physician: Car Olsen Reason for Consult: perf diverticulitis 07/02/18 18:23 Gastroenterology Consult Routine Comment: Consulting Provider: Rigoberto Catalan Consulting Physician: Rigoberto Catalan Reason for Consult: divetrticuotis Time Spent in preparation of Discharge (in minutes): 35 Hospital Course - Lab Results Lab Results: Most Recent Lab Values WBC 3.5 K/uL (4.8-10.8) L D 07/06/18 07:09 RBC 4.69 Mil/uL (4.40-5.90) 07/06/18 07:09 Hgb 12.0 g/dL (12.0-18.0) 07/06/18 07:09 Hct 36.2 % (35.0-51.0) 07/06/18 07:09 MCV 77.1 fL (80.0-94.0) L 07/06/18 07:09 MCH 25.5 pg (27.0-31.0) L 07/06/18 07:09 MCHC 33.1 g/dL (33.0-37.0) 07/06/18 07:09 RDW 15.0 % (11.5-14.5) H 07/06/18 07:09 Plt Count 420 K/uL (130-400) H 07/06/18 07:09 MPV 7.2 fL (7.2-11.7) 07/06/18 07:09 Neut % (Auto) 49.6 % (50.0-75.0) L 07/06/18 07:09 Lymph % (Auto) 26.0 % (20.0-40.0) 07/06/18 07:09 [place] % (Auto) 20.9 % (0.0-10.0) H 07/06/18 07:09 Eos % (Auto) 3.0 % (0.0-4.0) 07/06/18 07:09 Baso % (Auto) 0.5 % (0.0-2.0) 07/06/18 07:09 Neut # (Auto) 1.7 K/uL (1.8-7.0) L 07/06/18 07:09 Lymph # (Auto) 0.9 K/uL (1.0-4.3) L 07/06/18 07:09 [place] # (Auto) 0.7 K/uL (0.0-0.8) 07/06/18 07:09 Eos # (Auto) 0.1 K/uL (0.0-0.7) 07/06/18 07:09 Baso # (Auto) 0.0 K/uL (0.0-0.2) 07/06/18 07:09 Neutrophils % (Manual) 55 % (50-75) 07/06/18 07:09 Band Neutrophils % 1 % (0-2) 07/06/18 07:09 Lymphocytes % (Manual) 29 % (20-40) 07/06/18 07:09 Monocytes % (Manual) 14 % (0-10) H 07/06/18 07:09 Eosinophils % (Manual) 1 % (0-4) 07/06/18 07:09 Platelet Estimate Slightly increased (NORMAL) H 07/06/18 07:09 Polychromasia Slight 07/06/18 07:09 Hypochromasia (manual) Slight 07/06/18 07:09 Anisocytosis (manual) Slight 07/06/18 07:09 PT 14.8 SECONDS (9.7-12.2) H 07/02/18 00:35 INR 1.4 07/02/18 00:35 APTT 34.5 SECONDS (21-34) H 07/02/18 00:35 Sodium 138 mmol/L (132-148) 07/06/18 07:09 Potassium 3.5 mmol/L (3.6-5.2) L 07/06/18 07:09 Chloride 103 mmol/L (98-107) 07/06/18 07:09 Carbon Dioxide 25 mmol/L (22-30) 07/06/18 07:09 Anion Gap 13 (10-20) 07/06/18 07:09 BUN 11 mg/dL (9-20) 07/06/18 07:09 Creatinine 1.6 mg/dL (0.8-1.5) H 07/06/18 07:09 Est GFR ( Amer) 56 07/06/18 07:09 Est GFR (Non-Af Amer) 46 07/06/18 07:09 Random Glucose 89 mg/dL (75-110) 07/06/18 07:09 Calcium 9.1 mg/dl (8.6-10.4) 07/06/18 07:09 Total Bilirubin 0.6 mg/dL (0.2-1.3) 07/04/18 08:21 AST 26 U/L (17-59) 07/04/18 08:21 ALT 24 U/L (21-72) 07/04/18 08:21 Alkaline Phosphatase 70 U/L (38-126) 07/04/18 08:21 Total Protein 6.9 g/dL (6.3-8.3) 07/04/18 08:21 Albumin 3.5 g/dL (3.5-5.0) 07/04/18 08:21 Globulin 3.4 gm/dL (2.2-3.9) 07/04/18 08:21 Albumin/Globulin Ratio 1.0 (1.0-2.1) 07/04/18 08:21 Lipase 58 U/L (23-300) 07/02/18 00:35 Carcinoembryonic Ag 1.5 ng/mL (0-3.0) 07/03/18 14:05 Urine Color Yellow (YELLOW) 07/02/18 00:35 Urine Clarity Clear (Clear) 07/02/18 00:35 Urine pH 6.0 (5.0-8.0) 07/02/18 00:35 Ur Specific [place] 1.021 (1.003-1.030) 07/02/18 00:35 Urine Protein 1+ mg/dL (NEGATIVE) H 07/02/18 00:35 Urine Glucose (UA) Normal mg/dL (Normal) 07/02/18 00:35 Urine Ketones 1+ mg/dL (NEGATIVE) H 07/02/18 00:35 Urine Blood Negative (NEGATIVE) 07/02/18 00:35 Urine Nitrate Negative (NEGATIVE) 07/02/18 00:35 Urine Bilirubin Negative (NEGATIVE) 07/02/18 00:35 Urine Urobilinogen Normal mg/dL (0.2-1.0) 07/02/18 00:35 Ur Leukocyte Esterase Neg [place]/uL (Negative) 07/02/18 00:35 Urine WBC (Auto) < 1 /hpf (0-5) 07/02/18 00:35 Urine RBC (Auto) 1 /hpf (0-3) 07/02/18 00:35 Ur Squamous Epith Cells < 1 /hpf (0-5) 07/02/18 00:35 Stool Occult Blood Negative (NEGATIVE) 07/02/18 04:32 Discharge Exam - Head Exam Head Exam: ATRAUMATIC, NORMAL INSPECTION, NORMOCEPHALIC Discharge Plan - Discharge Medications Prescriptions: Ciprofloxacin [Cipro] 500 mg PO Q12 14 Days #28 tab Metronidazole [Flagyl] 500 mg PO Q8 14 Days #42 tablet - Follow Up Plan Condition: GOOD Disposition: HOME/ ROUTINE Instructions: Ciprofloxacin (Systemic), Diverticulitis (DC), Metronidazole (Systemic), Perforation of the GI Tract (DC) Additional Instructions: Please follow up with Dr. Joel office in 1 week Please continue antibiotics for 2 weeks If you develops any fever, severe abdominal pain, Nausea/Vomiting/Diarrhea please returns to the ED as soon as possible Please follow up with Dr. Catalan office after 8 weeks ( for endoscopic eval) Please sisal picker medication from health care pharmacy - e prescribed Referrals: Rigoberto Catalan [Staff Provider] - Wild Joel MD [Staff Provider] -
[2018-07-06 23:30] VITALS: BP 138/74; TEMP 98.3; O2SAT 96
--- NOTE | 2018-07-07 04:40 | DS ---
DISCHARGE DIAGNOSES: 1. Diverticulitis with perforation of colon. 2. Hypertension. 3. Dehydration. HOSPITAL COURSE: This is a 48-year-old -[place] male with history of prior diverticulitis, came in because of abdominal pain, nausea, vomiting. He was found to have diverticulitis with colonic perforation. He was seen by Surgery. He did not need surgery, and the patient was treated with antibiotics, and the patient was treated with NPO, started on clear liquid diet, proceeded to solid diet. The patient did well; and he is for discharge. Condition upon discharge is stable. The patient will be followed up by me as outpatient. Wild Joel MD
== END 2018-07-06 17:50 | disposition home or self-care (01) | DRG 182 ==
LOC: C.ER 23:42 → C.6T 07-02 03:55
PROVIDERS: ADMIT Internal Medicine; ATTEND Internal Medicine
DX: K57.20 Diverticulitis of large intestine with perforation and abscess without bleeding (principal); I10 Essential (primary) hypertension; E86.0 Dehydration; E78.5 Hyperlipidemia, unspecified; D64.9 Anemia, unspecified; K59.00 Constipation, unspecified; N50.819 Testicular pain, unspecified